=== PATIENT | male | born 1945 | race Caucasian/White ===

== ENCOUNTER 2020-03-27 09:46 | Emergency (ER) | payer OTHER, SELFPAY ==
--- NOTE | ~2020-03-27 | XR_ITS ---
EXAMINATION: XR chest 1V portable INDICATION: Fever TECHNIQUE: Portable AP chest at 1110 hours COMPARISON: 09/08/2009 FINDINGS: The lungs are free of acute opacities. There is no pleural effusion or pneumothorax. The he art size is normal. Calcified atherosclerosis is noted. There is moderate thoracic spondylosis. IMPRESSION: 1. No acute cardiopulmonary abnormality. Reviewed, dictated and finalized at location A. ER TANK OPERATOR
[2020-03-27 09:47] VITALS: BP 131/105; PULSE 82; RESP 28; TEMP 37.6; O2SAT 98
--- NOTE | 2020-03-27 10:30 | ED.GENADULT ---
HPI - General Adult General Chief complaint: Fever Stated complaint: DIZZY,FEVER,BODY ACHES Time Seen by Provider: 03/27/20 09:54 Source: patient History of Present Illness HPI narrative: Patient is a 74 y/o male complaining of subjective fever for 1 week. There is no alleviating or exacerbating factor. He did not check his temperature. He also has generalized bodyache and joint pain. He also feels dizzy and light-headed. He did not pass out or have any room spinning sensation. Related Data Allergies Allergy/AdvReac Type Severity Reaction Status Date / Time No Known Allergies Allergy Unknown Verified 03/27/20 09:52 Review of Systems Constitutional: Constitutional: Denies chills, Reports fever(s), Denies headache(s) and Reports weakness Eyes: Eyes: Denies blurry vision ENT: Denies headache(s) and Denies neck pain Cardiovascular: Cardiovascular: Denies chest pain and Denies dyspnea Respiratory: Respiratory: Denies cough and Denies dyspnea Gastrointestinal: Gastrointestinal: Denies abdominal pain, Denies diarrhea, Denies nausea and Denies vomiting Genitourinary: Genitourinary: Denies hematuria and Denies dysuria Musculoskeletal: Musculoskeletal: Reports as per HPI, Denies back pain, Reports myalgias, Reports arthralgias and Denies neck pain Neurologic: Denies headache(s) and Reports weakness PMFSH Family History Family History Mother Carcinoma of colon Family history of congestive heart failure Social History Social History Smoking status: Never smoker Alcohol intake: current Exam Const: General: no acute distress and well developed Orientation/consciousness: oriented to person, oriented to place, oriented to time and patient oriented x3 HENMT: Head: normocephalic Ears: external ears normal General nose exam: Normal external nose present Eyes: General: appearance normal, both eyes and all related structures Conjunctivae: conjunctivae normal Neck: Neck: normal visual inspection and full ROM Chest: Chest palpation & inspection: normal inspection of the chest and no tenderness Resp: Effort & Inspection: normal respiratory effort Auscultation: clear to auscultation bilaterally Cardio: Rate: regular rate Rhythm: regular rhythm GI: Inspection: other (colostomy present) GI Palp: No abdominal tenderness and Yes Soft to palpation Skin: General skin exam: normal color and turgor normal Neuro: General: oriented to person, oriented to place, oriented to time and patient oriented x3 Cognition (Neuro): normal cognition Extrem: General: normal to inspection, full ROM and no pedal edema Psych: Appearance: grossly normal Mental Status: mental status grossly normal Affect: normal affect Course Vital Signs Vital signs: Vital Signs Temperature 37.6 C H 03/27/20 09:47 Pulse Rate 82 03/27/20 09:47 Respiratory Rate 28 H 03/27/20 09:47 Blood Pressure 131/105 H 03/27/20 09:47 Pulse Oximetry 98 03/27/20 09:47 Temperature 37.6 C H 03/27/20 09:47 Pulse Rate 88 03/27/20 12:56 Respiratory Rate 18 03/27/20 12:56 Blood Pressure 123/94 H 03/27/20 12:56 Pulse Oximetry 100 03/27/20 12:56 Medical Decision Making Vital Signs Vital Signs: Vital Signs Temperature 37.6 C H 03/27/20 09:47 Pulse Rate 82 03/27/20 09:47 Respiratory Rate 28 H 03/27/20 09:47 Blood Pressure 131/105 H 03/27/20 09:47 Pulse Oximetry 98 03/27/20 09:47 Temperature 37.6 C H 03/27/20 09:47 Pulse Rate 88 03/27/20 12:56 Respiratory Rate 18 03/27/20 12:56 Blood Pressure 123/94 H 03/27/20 12:56 Pulse Oximetry 100 03/27/20 12:56 Lab Data Result diagrams: 03/27/20 10:52 03/27/20 10:52 Labs: Lab Results 03/27/20 03/27/20 03/27/20 Range/Units 10:35 10:52 10:52 WBC 6.2 (4.5-10.0) K/mm3 RBC 4.97 (4.6-6.20) M/mm3 Hgb 15.6 (14.0-
[2020-03-27 11:02] LABS: Basophils Percent Auto 0.2 % (0.2-1.2); Hematocrit 44.6 % (42.0-52.0); Hemoglobin 15.6 g/dL (14.0-18.0); Immature Granulocyte Absolute 0.03 K/mm3 (0.00-0.031); Immature Granulocyte Percent A 0.5 % (0-0.5); Lymphocytes Absolute Auto 1.01 K/mm3 (0.9-3.2); Lymphocytes Percent Auto 16.2 % (18.3-44.2); Mean Corpuscular Hemoglobin 31.4 pg (26-34); Mean Corpuscular Volume 89.7 fl (80-100); Mean Platelet Volume 9.9 fl (7.4-10.4); Monocytes Absolute Auto 0.8 K/mm3 (0.1-0.6); Monocytes Percent Auto 12.9 % (2.6-8.5); Neutrophils Absolute Auto 4.4 K/mm3 (1.3-6.7); Neutrophils Percent Auto 70.2 % (45.5-73.1); Platelet Count Result 231 k/mm3 (150-375); Red Blood Count 4.97 M/mm3 (4.6-6.20); Red Cell Distribution Width 13.1 % (11.5-14.5); White Blood Count 6.2 K/mm3 (4.5-10.0)
[2020-03-27 11:08] LABS: Add Urine Microscopic? YES; Appearance Urine Clear (Clear); Bacteria Urine Trace /hpf; Bilirubin Urine Negative (Negative); Blood Urine Negative (Negative); Color Urine Yellow (Yellow); Glucose Urine UA Negative (Negative); Ketones Urine Negative (Negative); Leukocyte Esterase Ur Negative LEU/UL (Negative); Mucus Urine Rare /lpf; Nitrate Urine Negative (Negative); Protein Urine 2+ mg/dL (Negative); Specific Grav Ur 1.026 (1.001-1.035); Squamous Epithelial Cell Urine Occasional /hpf (Few); WBC Urine 0-3 /hpf
[2020-03-27 11:12] VITALS: BP 107/97; PULSE 99; RESP 20; O2SAT 97
[2020-03-27 11:18] LABS: Albumin Level 4.3 g/dL (3.5-5.1)
[2020-03-27 11:29] LABS: Alanine Aminotransferase 20 U/L (4-50); Alkaline Phosphatase 45 U/L (38-126); Anion Gap 11 mmol/L (8-16); Aspartate Amino Transferase 38 U/L (17-59); Bilirubin,Total 0.9 mg/dL (0.2-1.3); Blood Urea Nitrogen 30 mg/dL (9-20); Calcium 9.7 mg/dL (8.4-10.2); Carbon Dioxide 22 mmol/L (22-30); Chloride 101 mmol/L (98-107); Estimated CRCL calculation 45 ml/min; Estimated Glomerular Filt Rate 46; Glucose 118 mg/dL (75-110); Potassium 4.6 mmol/L (3.4-5.0); Sodium 134 mmol/L (137-145)
[2020-03-27] MEDS: SODIUM CHLORIDE 0.9% IV 1,000 ML 999 ML IV CONT (12:52)
[2020-03-27 12:56] VITALS: BP 123/94; PULSE 88; RESP 18; O2SAT 100
[2020-03-27 19:06] LABS: SARS-CoV-2 RNA PCR Positive
== END 2020-03-27 13:52 | disposition home or self-care (01) ==
PROVIDERS: Emergency Provider Emergency Medicine; PCP Family Medicine Adolescent Medicine
DX: U07.1 COVID-19 (principal); R50.9 Fever, unspecified; E86.0 Dehydration
CPT/HCPCS: 36415; 71045; 80053; 81001; 85025; 96360; 99283; C9803; J7030; U0003

== ENCOUNTER 2020-04-01 10:02 | Inpatient (IN) | payer OTHER, SELFPAY ==
[2020-04-01] VITALS (17 sets, daily range): BP systolic 100–133; BP diastolic 61–105; PULSE 56–114; RESP 17–34; TEMP 36.1–37.5; O2SAT 82–100; BMI 31.2
--- NOTE | ~2020-04-01 | XR_ITS ---
EXAMINATION: XR chest 1V portable DATE: 04/05/2020 15:01 INDICATION: COVID-19 pneumonia. TECHNIQUE: A single frontal view of the chest was obtained. COMPARISON: Chest single view 04/01/2020, chest CT 04/01/2020 FINDINGS: There are airspace opacities in all lung zones with a peripheral predominance with relative sparing of the lung apices. No pleural effusion or pneumothorax. The heart size is normal. IMPRESSION: 1. Diffuse lung disease with worsening at the lung bases, consistent with COVID-19 pneumonia. Reviewed, dictated and finalized at location B. EL MECHANIC CONSTRUCTION IMPRESSION: 1. Diffuse lung disease with worsening at the lung bases, consistent with COVID -19 pneumonia.
--- NOTE | ~2020-04-01 | CT_ITS ---
EXAMINATION: CTA chest PE protocol DATE: 04/01/2020 12:04 LENDING CONSULTANT INDICATION: Shortness of breath. Covid Positive. TECHNIQUE: Computed tomographic angiography (CTA) of the chest was performed with 100 mL Omnipaque-35 0 intravenous contrast. The dose-length product was 719.86 mGy-cm. Maximum intensity projection 3D-re constructions of the aorta and other arteries were constructed by the technologist on a separate work station. Automated exposure control and iterative reconstruction technique were employed. COMPARISON: CT dated 03/26/2012 and chest x-ray dated 04/01/2020. FINDINGS: The study is technically adequate without evidence for pulmonary embolism. Heart size upper normal. No significant pleural or pericardial effusion. There are extensive groundglass opacities th roughout all lobes of the lung. There is mild mediastinal lymphadenopathy number for example precarin al lymph node, image 106, measures 1.8 cm. These are likely reactive. There is atherosclerosis and mi ld ectasia of the aorta. There are calcified granulomas of the spleen. Gallbladder is present. IMPRESSION: 1. Extensive patchy bilateral groundglass opacification which may represent edema or pneumonia. 2: Mild mediastinal lymphadenopathy, likely reactive. 3: No evidence for pulmonary embolism. Reviewed, dictated and finalized at location A. ING CONSULTANT IMPRESSION: 1. Extensive patchy bilateral groundglass opacification which may represent maribel ma or pneumonia. 2: Mild mediastinal lymphadenopathy, likely reactive. 3: No evidence for pulmonary embolism.
--- NOTE | ~2020-04-01 | XR_ITS ---
EXAMINATION: XR chest 1V portable INDICATION: Shortness of breath TECHNIQUE: Portable AP chest at 0540 hours COMPARISON: 04/05/2020 FINDINGS: Airspace opacities persist in all lung zones with slight improvement. There is no pleural e ffusion or pneumothorax. The cardiomediastinal silhouette is normal. IMPRESSION: 1. Diffuse lung disease with slight interval improvement, consistent with pneumonia and/or pulmonary edema and/or acute respiratory distress syndrome (ARDS). Reviewed, dictated and finalized at location A. AIN/AIRLINE PILOT IMPRESSION: 1. Diffuse lung disease with slight interval improvement, consistent with pneum onia and/or pulmonary edema and/or acute respiratory distress syndrome (ARDS).
--- NOTE | ~2020-04-01 | XR_ITS ---
XR chest 1V portable 04/01/2020 10:41 Indication: Covid. Shortness of breath. Procedure: AP portable chest Comparison: Comparison to multiple prior studies sequentially, with oldest reviewed study dated 05/08. Findings: Heart size upper normal. There is extensive bilateral airspace disease of the mid and lower lung zones. No pleural effusion or pneumothorax. Impression: 1: Extensive bilateral airspace disease which may represent edema or pneumonia. Reviewed, dictated and finalized at location A. ITION DIRECTOR Impression: 1: Extensive bilateral airspace disease which may represent edema or pneumonia.
--- NOTE | 2020-04-01 10:04 | ED.GENADULT ---
HPI - General Adult General Chief complaint: Upper Respiratory Infection Stated complaint: WEAKNESS,COVID + Time Seen by Provider: 04/01/20 10:04 Source: patient, EMS, RN notes reviewed and old records reviewed History of Present Illness HPI narrative: 74-year-old male presents to emergency department for multiple complaints. Patient states he was diagnosed with COVID-19 on Friday. He has been feeling weak, which has progressively worsened recently. He also reports feeling short of breath. No fever or chills. No chest pain. No abdominal pain. No nausea or vomiting. Per EMS, patient was satting in the 80s, started on nasal cannula. He was also tachycardic. Related Data Home Medications Medication Instructions Recorded Confirmed benzonatate 200 mg PO TID PRN 04/01/20 04/01/20 fenofibrate 160 mg PO DAILY 04/01/20 04/01/20 propranolol 60 mg PO DAILY 04/01/20 04/01/20 simvastatin 40 mg PO HS 04/01/20 04/01/20 Allergies Allergy/AdvReac Type Severity Reaction Status Date / Time No Known Allergies Allergy Unknown Verified 04/01/20 11:00 Review of Systems Review of Systems: Narrative: CONSTITUTIONAL: Denies fever, chills, or sweats. EYES: Denies visual changes, redness, or discharge. ENT: Denies rhinorrhea, congestion, sore throat, or otalgia. CARDIOVASCULAR: Denies chest pain, palpitations, or edema. RESPIRATORY: Denies cough. Reports shortness of breath GASTROINTESTINAL: Denies abdominal pain, nausea, vomiting, or diarrhea. GENITOURINARY: Denies dysuria or hematuria. SKIN: Denies rash or itching. MUSCULOSKELETAL: Denies back pain, joint pain, or myalgia. NEUROLOGIC: Denies headache, numbness, dizziness. Positive for weakness PSYCHIATRIC: Denies anxiety or depression. All systems reviewed & are unremarkable except as noted in HPI and below (ROS) [facility] Past Medical History Medical History (Updated 04/01/20 @ 15:18 by Caitlin Jeter NP) BPH (benign prostatic hyperplasia) HTN (hypertension) with goal to be determined Hyperlipidemia Rectal cancer approximately 10 years ago with a colostomy and radiation and chemotherapy. Surgical History Surgical History (Updated 04/01/20 @ 15:19 by Caitlin Jeter NP) H/O hernia repair colostomy prolapse History of colon surgery colostomy History of removal of Port-a-Cath S/P TURP Family History Family History Mother Carcinoma of colon Family history of congestive heart failure Father Lung cancer Social History Social History (Updated 04/01/20 @ 15:21 by Caitlin Jeter NP) Social History: the patient has never he is single and he does not have any children. He is retired from a [employer]. Lifelong nonsmoker. Does not use any alcohol or illicit drugs. His brother is a durable power laboratory engineer for healthcare. He has with his brother. Patient desires to be a full code. Smoking status: Never smoker Alcohol intake: never Substance use: never Gender identity (if verbalized by the patient): Male Spiritual care concerns: No Exam Narrative: Exam Narrative: GENERAL: Well-appearing, well-nourished, and in no acute distress. HEAD: Normocephalic, atraumatic. EYES: PERRLA and EOMI. ENT: Nares clear, no rhinorrhea or epistaxis. Mucous membranes moist. NECK: Supple. CHEST: Clear to auscultation. Tachypnea, decreased breath sounds bilaterally. HEART: Tachycardia no murmur heard. Normal peripheral pulses. ABDOMEN: Soft, nontender, nondistended, normal active bowel sounds. EXTREMITIES: Normal range of motion. No edema. SKIN: Warm, dry, no rash. NEURO: No focal deficits. Alert and oriented x3. PSYCH: Normal mood and affect. Course Reevaluation(s) Reevaluation #1: 12:05PM - pt has low oxygen sat on 6L, satting in the 80s, will start CPAP 1310 -with Caitlin, accepts patient for Dr. Rosen. 1320 -reevaluated patient, tolerating CPAP Vital Signs Vital signs: Vital Signs Temp
--- NOTE | 2020-04-01 10:07 | ECG_ITS ---
Measurements Intervals Cross Rate: 110 P: 18 DE: 171 QRS: 260 QRSD: 154 T: 30 QT: 365 QTc: 494 Interpretive Statements SINUS TACHYCARDI ATRIAL PREMATURE COMPLEX RIGHT AXIS DEVIATION RIGHT BUNDLE BRANCH BLOCK BASELINE ARTIFACT- I, III, AVL, AVF, V3 ABNORMAL ECG Electronically Signed On 04-01-2020 15:11:02 FURNACE OPERATOR by Clint Rodriguez D.O.
[2020-04-01] MEDS: KETOROLAC 15 MG/ML VIAL (*BKC) IV PUSH (10:14)
[2020-04-01] MEDS: DEXAMETHASONE SOD PHOS INJ 4 MG/ML VIAL 6 MG IV PUSH (10:14)
[2020-04-01 10:24] LABS: Basophils Percent Auto 0.2 % (0.2-1.2); Hematocrit 45.1 % (42.0-52.0); Hemoglobin 15.9 g/dL (14.0-18.0); Immature Granulocyte Absolute 0.03 K/mm3 (0.00-0.031); Immature Granulocyte Percent A 0.3 % (0-0.5); Lymphocytes Percent Auto 12.8 % (18.3-44.2); Mean Corpuscular HGB Conc 35.3 g/dl (32-36); Mean Corpuscular Hemoglobin 31.5 pg (26-34); Mean Corpuscular Volume 89.3 fl (80-100); Mean Platelet Volume 10.2 fl (7.4-10.4); Monocytes Absolute Auto 0.4 K/mm3 (0.1-0.6); Neutrophils Absolute Auto 7.8 K/mm3 (1.3-6.7); Neutrophils Percent Auto 82.7 % (45.5-73.1); Platelet Count Result 386 k/mm3 (150-375); Red Blood Count 5.05 M/mm3 (4.6-6.20); Red Cell Distribution Width 13.1 % (11.5-14.5); White Blood Count 9.4 K/mm3 (4.5-10.0)
[2020-04-01 10:38] LABS: Albumin Level 4.2 g/dL (3.5-5.1); Alkaline Phosphatase 62 U/L (38-126); Anion Gap 14 mmol/L (8-16); Aspartate Amino Transferase 80 U/L (17-59); Bilirubin,Total 1.1 mg/dL (0.2-1.3); Blood Urea Nitrogen 21 mg/dL (9-20); Calcium 9.3 mg/dL (8.4-10.2); Carbon Dioxide 21 mmol/L (22-30); Chloride 94 mmol/L (98-107); Estimated CRCL calculation 56 ml/min; Estimated Glomerular Filt Rate 59; Glucose 139 mg/dL (75-110); Potassium 4.5 mmol/L (3.4-5.0); Sodium 129 mmol/L (137-145)
[2020-04-01 10:48] LABS: NT Pro B Type Natriuretic Pept 1780 PG/ML (5-100); Troponin I 0.012 ng/mL (0.000-0.034)
[2020-04-01 10:50] LABS: Alanine Aminotransferase 28 U/L (4-50)
[2020-04-01 11:16] LABS: D Dimer 0.96 ug/mL (<0.48)
--- NOTE | 2020-04-01 14:05 | PC.NURSE ---
CALLED FLOOR TO GIVE REPORT. STATES RN IS UNAVAILABLE AT THIS TIME AND WILL CALL BACK FOR REPORT.
--- NOTE | 2020-04-01 15:07 | PM.IMHP ---
H&P: HPI History of Present Illness Date/Time: 04/01/20 15:07 Chief Complaint: Shortness of breath Narrative: Shai Montoya is a 74 year old maleWho was having symptoms approximately week and half ago. The patient does primary care doctor's office and was given COVID test and tested positive for Friday. He lives with his brother and states his brother does not have COVID . He has been getting weak and progressively worse lately. He has been feeling short of breath. No fever chills he the patient was having oxygen saturations in the 80s when EMS edema. He is also tachycardic. Patient was placed on a CPAP machine per ED provider. Has a history of having colon cancer about 10 years ago and was on chemo and radiation then but is not on any chemo radiation since then. Patient's sodium is 129 and had been 134 few days ago. He is not eating or drinking very well. His creatinine is normal today though. BNP is 1780. His patient's COVID test was positive in the chart on 03/27/2020. CTA was read as extreme patchy bilateral ground-glass opacities which may represent edema or pneumonia. Mild mediastinal lymphadenopathy likely reactive. No evidence of pulmonary embolism. The patient was given Decadron and Toradol. Patient has no complaints of chest pain at this time he was initially started on nasal cannula when he was in the ambulance but is now on a CPAP machine. He is tolerating it well. The patient is being admitted to inpatient services on the date of service 06/15 6021. Review of Systems Review of Systems: All systems reviewed & are unremarkable except as noted in HPI and below Constitutional: Constitutional: Reports as per HPI and Reports no additional constitutional complaints Eyes: Eyes: Reports as per HPI and Reports no additional eye complaints ENT: Reports system reviewed and no additional complaints, except as documented and Reports Normal hearing present Cardiovascular: Cardiovascular: Reports no additional cardiovascular complaints Respiratory: Respiratory: Reports no additional respiratory complaints and Reports no additional respiratory complaints Gastrointestinal: Gastrointestinal: Reports as per HPI and Reports no additional gastrointestinal complaints Musculoskeletal: Musculoskeletal: Reports no additional musculoskeletal complaints Integumentary/Breasts: Skin/Breast: Reports system reviewed and no additional complaints, except as docu and Reports as per HPI Neurologic: Reports system reviewed and no additional complaints, except as documented, Reports as per HPI and Reports Normal hearing present Psychiatric: Psychiatric: Reports no additional psychiatric complaints and Reports as per HPI Endocrine: Endocrine: Reports no additional endocrine complaints Hematologic/Lymphatic: Hematologic/Lymphatic: Reports no additional hematologic/lymphatic complaints Allergic/Immunologic: Allergic/Immunologic: Reports no additional allergic/immunologic complaints [facility] Past Medical History Medical History (Updated 04/01/20 @ 15:18 by Caitlin Jeter NP) BPH (benign prostatic hyperplasia) HTN (hypertension) with goal to be determined Hyperlipidemia Rectal cancer approximately 10 years ago with a colostomy and radiation and chemotherapy. Surgical History Surgical History (Updated 04/01/20 @ 15:19 by Caitlin Jeter NP) H/O hernia repair colostomy prolapse History of colon surgery colostomy History of removal of Port-a-Cath S/P TURP Family History Family History (Updated 04/01/20 @ 15:20 by Caitlin Jeter NP) Mother Carcinoma of colon Family history of congestive heart failure Father Lung cancer Social History Social History (Updated 04/01/20 @ 15:21 by Caitlin Jeter NP) Social History: the patient has never he is single and he does not have any children. 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 Lifelong nonsmoker. Does not use any alcohol or illicit drugs. His brother is a durab
--- NOTE | 2020-04-01 15:24 | ADMGEN ---
This patient, Shai Montoya, was admitted to IMU Room 211-01. Patient/family oriented to hospital policies and general routines including ID bracelet, bed and alarms, visiting hours, pain management, procedures, bathroom and other care routines, personal items, smoking policy, room service/diet, and visiting hours. Information on how to activate the Rapid Response Team has been discussed. Patient/Family are encouraged to report perceived risks to care and to ask questions if they do not understand what they are told or what they should do.
--- NOTE | 2020-04-01 15:25 | ADMGEN ---
This patient, hSai Montoya, was admitted to IMU Room 211-01 at 1450 on 03/31/20. Patient/family oriented to hospital policies and general routines including ID bracelet, bed and alarms, visiting hours, pain management, procedures, bathroom and other care routines, personal items, smoking policy, room service/diet, and visiting hours. Information on how to activate the Rapid Response Team has been discussed. Patient/Family are encouraged to report perceived risks to care and to ask questions if they do not understand what they are told or what they should do.
[2020-04-01 16:26] LABS: Sodium 128 mmol/L (137-145)
[2020-04-01 16:31] LABS: Anion Gap 5 mmol/L (8-16); Blood Urea Nitrogen 27 mg/dL (9-20); Calcium 9.3 mg/dL (8.4-10.2); Carbon Dioxide 25 mmol/L (22-30); Chloride 98 mmol/L (98-107); Estimated CRCL calculation 51 ml/min; Estimated Glomerular Filt Rate 54; Glucose 134 mg/dL (75-110); Potassium 5.2 mmol/L (3.4-5.0)
[2020-04-01] MEDS: TOLNAFTATE 1% POWDER 45 GM BTL 1 APPLIC TOPICAL (21:05)
[2020-04-02] VITALS (17 sets, daily range): BP systolic 93–125; BP diastolic 56–85; PULSE 55–93; RESP 16–30; TEMP 36.3–36.6; O2SAT 86–100
[2020-04-02] MEDS: SIMVASTATIN 20 MG TABLET 40 MG PO ×2 (00:31→20:10)
[2020-04-02 05:53] LABS: Basophils Percent Auto 0.2 % (0.2-1.2); Hematocrit 45.2 % (42.0-52.0); Hemoglobin 15.6 g/dL (14.0-18.0); Immature Granulocyte Absolute 0.05 K/mm3 (0.00-0.031); Immature Granulocyte Percent A 0.5 % (0-0.5); Lymphocytes Absolute Auto 0.76 K/mm3 (0.9-3.2); Lymphocytes Percent Auto 7.9 % (18.3-44.2); Mean Corpuscular HGB Conc 34.5 g/dl (32-36); Mean Corpuscular Hemoglobin 30.5 pg (26-34); Mean Corpuscular Volume 88.3 fl (80-100); Mean Platelet Volume 10.2 fl (7.4-10.4); Monocytes Absolute Auto 0.6 K/mm3 (0.1-0.6); Monocytes Percent Auto 6.7 % (2.6-8.5); Neutrophils Absolute Auto 8.1 K/mm3 (1.3-6.7); Neutrophils Percent Auto 84.7 % (45.5-73.1); Platelet Count Result 383 k/mm3 (150-375); Red Blood Count 5.12 M/mm3 (4.6-6.20); White Blood Count 9.6 K/mm3 (4.5-10.0)
[2020-04-02 06:08] LABS: Alanine Aminotransferase 27 U/L (4-50); Alkaline Phosphatase 58 U/L (38-126); Anion Gap 7 mmol/L (8-16); Aspartate Amino Transferase 60 U/L (17-59); Bilirubin,Total 0.9 mg/dL (0.2-1.3); Blood Urea Nitrogen 32 mg/dL (9-20); Calcium 9.6 mg/dL (8.4-10.2); Carbon Dioxide 27 mmol/L (22-30); Chloride 97 mmol/L (98-107); Estimated CRCL calculation 49 ml/min; Estimated Glomerular Filt Rate 59; Glucose 127 mg/dL (75-110); Lactate Dehydrogenase 1334 U/L (313-618); Magnesium 2.4 mg/dL (1.6-2.3); Sodium 131 mmol/L (137-145)
[2020-04-02] MEDS: TOLNAFTATE 1% POWDER 45 GM BTL 1 APPLIC TOPICAL ×2 (10:20→20:10)
[2020-04-02] MEDS: PROPRANOLOL HCL 60 MG CAPSULE CR PO (10:21)
[2020-04-02] MEDS: FENOFIBRATE 160 MG TABLET PO (10:21)
[2020-04-02] MEDS: DEXAMETHASONE SOD PHOS INJ 4 MG/ML VIAL 6 MG IV PUSH (10:22)
--- NOTE | 2020-04-02 13:04 | PM.IMPN ---
Progress Note: A&P Assessment and Plan (1) Hypoxia: Code(s): R09.02 - Hypoxemia Status: Acute Assessment and Plan: 04/02 Tolerating oxygen at 15 L with sats upper 90s. To med floor 04/02 No remdesivir due to past 10 day window. Dexamethasone initiated on 04/01. (2) Pneumonia due to 2019-nCoV: Code(s): U07.1 - COVID-19; J12.82 - Pneumonia due to coronavirus disease 2019 Status: Acute Assessment and Plan: Tested positive 03/27 but had been having symptoms for a week and half [address] [employer] (3) HTN (hypertension) with goal to be determined: Code(s): I10 - Essential (primary) hypertension Status: Chronic Assessment and Plan: Continue with home medications Monitor (4) BPH (benign prostatic hyperplasia): Code(s): N40.0 - Benign prostatic hyperplasia without lower urinary tract symptoms Status: Chronic Assessment and Plan: prior TURP continue with home medications. Subjective Date/time seen: 04/02/20 13:04 Interval history: Admitted 04/01 after about 10 days of symptoms, SOB, cough, chest tightness, fatigue. 04/02: Very tired. Tolerating diet. SOB with any exertion. Denied n/v/d. Review of Systems Review of Systems: All systems reviewed & are unremarkable except as noted in HPI and below Exam Narrative: Exam Narrative: HEENT: EOMI, PERRL, sclerae nonicteric, pharyngeal mucosa pink and intact NECK: No JVD, adenopathy, or thyromegaly CHEST: Bilateral LL fine crackles. Mild tachypnea HEART: NL S1/S2, regular, no murmur ABDOMEN: BS+, soft, nontender, no mass, no bruits EXTREMITIES: No cyanosis, edema, or clubbing NEUROLOGIC: CN intact and symmetric to inspection. MUSCULOSKELETAL: Tone and strength symmetric. PSYCH: Alert. Oriented to person, place, and time. Objective Data Vital Signs Vital Signs: Vital Signs - 24 hr 04/01/20 13:20 04/01/20 14:21 04/01/20 14:41 Temperature Pulse Rate 73 72 75 Respiratory Rate 20 20 20 Blood Pressure 100/71 111/70 111/70 Pulse Oximetry 97 96 97 04/01/20 15:15 04/01/20 15:23 04/01/20 15:30 Temperature 97.7 F Pulse Rate 70 70 Respiratory Rate 20 34 H Blood Pressure 108/61 Pulse Oximetry 87 L 88 L 95 04/01/20 15:52 04/01/20 16:00 04/01/20 18:00 Temperature 97.7 F Pulse Rate 70 60 83 Respiratory Rate 20 Blood Pressure 108/61 Pulse Oximetry 87 L 04/01/20 20:00 04/01/20 21:30 04/01/20 22:00 Temperature 97 F L Pulse Rate 56 L 61 62 Respiratory Rate 24 H 32 H Blood Pressure 133/84 Pulse Oximetry 100 96 04/02/20 00:00 04/02/20 02:00 04/02/20 03:51 Temperature 97.4 F L Pulse Rate 56 L 58 L Respiratory Rate 27 H Blood Pressure 93/57 L Pulse Oximetry 96 97 04/02/20 04:00 04/02/20 06:00 04/02/20 06:32 Temperature 97.6 F Pulse Rate 58 L 71 Respiratory Rate 22 H Blood Pressure 103/68 Pulse Oximetry 97 90 04/02/20 08:00 04/02/20 08:01 04/02/20 10:00 Temperature 97.8 F Pulse Rate 74 81 88 Respiratory Rate 20 Blood Pressure 94/56 L Pulse Oximetry 95 90 04/02/20 10:21 04/02/20 12:00 Temperature 97.6 F Pulse Rate 93 85 Respiratory Rate 22 H Blood Pressure 124/66 Pulse Oximetry 96 Intake/Output Intake/Output: Intake & Output 03/30/20 03/31/20 04/01/20 04/02/20 23:59 23:59 23:59 23:59 Intake Total 125 480 Output Total 325 600 Balance -200 -120 Meds/Results Medications: Active Medications Generic Name Dose Route Start Last Admin Trade Name Freq PRN Reason Stop Dose Admin Acetaminophen 650 mg 04/01/20 13:14 Acetaminophen 325 Mg Tablet PO Q4H PRN Mild Pain (1-3) or Fever Benzonatate 200 mg 04/01/20 22:49 Benzonatate 100 Mg Capsule PO TID PRN Cough Dexamethasone Sodium Phosphate 6 mg 04/02/20 09:00 04/02/20 10:22 Dexamethasone Sod Phos Inj 4 Mg/Ml Vial IV PUSH 04/11/20 09:01 6 mg DAILY OCTAVIO Administration Fenofibrate 160 mg 04/02/20 09:00 04/02/20 10:21 Fe
[2020-04-03] VITALS (8 sets, daily range): BP systolic 103–152; BP diastolic 54–96; PULSE 53–74; RESP 18–24; TEMP 36.1–36.6; O2SAT 87–100
[2020-04-03 05:25] LABS: Hematocrit 45.1 % (42.0-52.0); Hemoglobin 15.7 g/dL (14.0-18.0); Mean Corpuscular HGB Conc 34.8 g/dl (32-36); Mean Corpuscular Hemoglobin 30.7 pg (26-34); Mean Corpuscular Volume 88.3 fl (80-100); Mean Platelet Volume 10.4 fl (7.4-10.4); Platelet Count Result 419 k/mm3 (150-375); Red Blood Count 5.11 M/mm3 (4.6-6.20); Red Cell Distribution Width 12.9 % (11.5-14.5); White Blood Count 11.4 K/mm3 (4.5-10.0)
[2020-04-03 05:38] LABS: D Dimer 1.14 ug/mL (<0.48)
[2020-04-03 05:42] LABS: Alanine Aminotransferase 34 U/L (4-50); Albumin Level 3.8 g/dL (3.5-5.1); Alkaline Phosphatase 59 U/L (38-126); Anion Gap 7 mmol/L (8-16); Aspartate Amino Transferase 55 U/L (17-59); Bilirubin,Total 0.9 mg/dL (0.2-1.3); Blood Urea Nitrogen 37 mg/dL (9-20); Calcium 9.5 mg/dL (8.4-10.2); Carbon Dioxide 28 mmol/L (22-30); Chloride 99 mmol/L (98-107); Estimated CRCL calculation 53 ml/min; Estimated Glomerular Filt Rate > 60; Glucose 138 mg/dL (75-110); Lactate Dehydrogenase 1164 U/L (313-618); Sodium 134 mmol/L (137-145)
[2020-04-03] MEDS: DEXAMETHASONE SOD PHOS INJ 4 MG/ML VIAL 6 MG IV PUSH (09:37)
[2020-04-03] MEDS: FENOFIBRATE 160 MG TABLET PO (09:37)
[2020-04-03] MEDS: PROPRANOLOL HCL 60 MG CAPSULE CR PO (09:37)
[2020-04-03] MEDS: TOLNAFTATE 1% POWDER 45 GM BTL 1 APPLIC TOPICAL ×2 (09:39→20:42)
--- NOTE | 2020-04-03 11:19 | PM.IMPN ---
Progress Note: A&P Assessment and Plan (1) Acute respiratory failure with hypoxemia: Code(s): J96.01 - Acute respiratory failure with hypoxia Status: Acute Assessment and Plan: Tolerating oxygen at 15 L with sats upper 90s. Wean O2 as tolerated. Add Albuterol. Add incentive spirometry. Increase activity. 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 CXR clear on 03/27 but showing extensive bilateral airspace disease by CXR on admission. CTA chest negative for PE. No remdesivir due to past 10 day window. Dexamethasone initiated on 04/01. Inflammatory markers better today. Continue Dexamethasone. Wean O2 as toelrated. (3) HTN (hypertension) with goal to be determined: Code(s): I10 - Essential (primary) hypertension Status: Chronic Assessment and Plan: Patient's blood pressure was reviewed on 04/03 Blood pressure remains well controlled. Will continue current medications with home propranolol. (4) BPH (benign prostatic hyperplasia): Code(s): N40.0 - Benign prostatic hyperplasia without lower urinary tract symptoms Status: Chronic Assessment and Plan: Patient has had TURP. Not currently on medications for BPH. (5) DVT prophylaxis: Code(s): Z29.9 - Encounter for prophylactic measures, unspecified Status: Acute Assessment and Plan: Lovenox Subjective Date/time seen: 04/03/20 11:19 Interval history: Date of service 04/03 74yo male admitted 04/01 after about 10 days of symptoms of SOB, cough, chest tightness and fatigue. He tested positive for COVID-19 on 03/27/20. Assuming care. Chart reviewed. Eating okay. No n/v. No issues overnight. Tolerating BiPAP. No CP or abd pain. Denies feeling SOB. Minimal cough Exam Narrative: Exam Narrative: AF 97.4 142/92 65 24 93% 15L HFNC Gen - NARD HEENT - poor dentition. mmm Chest - inspiratory crackles bilaterally, nml RR CV - irregularly irregular Abd - Soft, ND, +BS, colostomy bag with light brown stool in bag Ext - No pedal edema Psych - Nml mood and affect Skin - Warm and dry Objective Data Vital Signs Vital Signs: Vital Signs - 24 hr 04/02/20 12:00 04/02/20 16:00 04/02/20 19:56 Temperature 97.6 F 97.3 F L 97.5 F L Pulse Rate 85 80 77 Respiratory Rate 22 H 22 H 26 H Blood Pressure 124/66 119/81 125/85 Pulse Oximetry 96 96 100 04/02/20 20:00 04/02/20 22:47 04/02/20 23:05 Temperature Pulse Rate 55 L 58 L Respiratory Rate 16 16 Blood Pressure Pulse Oximetry 96 99 86 L 04/02/20 23:20 04/03/20 07:50 04/03/20 08:23 Temperature 97.5 F L 97.6 F Pulse Rate 63 69 Respiratory Rate 24 H 20 Blood Pressure 114/62 152/96 H Pulse Oximetry 94 90 94 04/03/20 09:37 Temperature Pulse Rate 60 Respiratory Rate Blood Pressure Pulse Oximetry Intake/Output Intake/Output: Intake & Output 03/31/20 04/01/20 04/02/20 04/03/20 23:59 23:59 23:59 23:59 Intake Total 125 800 390 Output Total 325 950 775 Balance -200 -150 -385 Meds/Results Medications: Active Medications Generic Name Dose Route Start Last Admin Trade Name Gumaroq PRN Reason Stop Dose Admin Acetaminophen 650 mg 04/01/20 13:14 Acetaminophen 325 Mg Tablet PO Q4H PRN Mild Pain (1-3) or Fever Benzonatate 200 mg 04/01/20 22:49 Benzonatate 100 Mg Capsule PO TID PRN Cough Dexamethasone Sodium Phosphate 6 mg 04/02/20 09:00 04/03/20 09:37 Dexamethasone Sod Phos Inj 4 Mg/Ml Vial IV PUSH 04/11/20 09:01 6 mg DAILY OCTAVIO Administration Fenofibrate 160 mg 04/02/20 09:00 04/03/20 09:37 Fenofibrate 160 Mg Tablet PO 160 mg DAILY OCTAVIO Administration Propranolol HCl 60 mg 04/02/20 09:00 04/03/20 09:37 Propranolol Hcl 60 M
[2020-04-03] MEDS: ALBUTEROL SULFATE (*SP) AEROSOL 1 PUFF 2 PUFF INHALATION (19:50)
[2020-04-03] MEDS: SIMVASTATIN 20 MG TABLET 40 MG PO (20:40)
[2020-04-03] MEDS: ENOXAPARIN 40 MG/0.4 ML SYRINGE SUB-Q (20:41)
[2020-04-03] MEDS: ALBUTEROL SULFATE (*SP) INHALER 1 PUFF (20:41)
[2020-04-04] VITALS (11 sets, daily range): BP systolic 112–120; BP diastolic 63–86; PULSE 63–89; RESP 20–24; TEMP 36.2–36.6; O2SAT 84–100
[2020-04-04] MEDS: ALBUTEROL SULFATE (*SP) AEROSOL 1 PUFF 2 PUFF INHALATION ×4 (01:32→20:07)
[2020-04-04 05:14] LABS: Anion Gap 4 mmol/L (8-16); Blood Urea Nitrogen 37 mg/dL (9-20); Carbon Dioxide 28 mmol/L (22-30); Chloride 100 mmol/L (98-107); Estimated CRCL calculation 49 ml/min; Estimated Glomerular Filt Rate 59; Glucose 131 mg/dL (75-110); Potassium 5.3 mmol/L (3.4-5.0); Sodium 132 mmol/L (137-145)
[2020-04-04] MEDS: FENOFIBRATE 160 MG TABLET PO (08:54)
[2020-04-04] MEDS: PROPRANOLOL HCL 60 MG CAPSULE CR PO (08:54)
[2020-04-04] MEDS: ENOXAPARIN 40 MG/0.4 ML SYRINGE SUB-Q (08:54)
[2020-04-04] MEDS: DEXAMETHASONE SOD PHOS INJ 4 MG/ML VIAL 6 MG IV PUSH (08:54)
[2020-04-04] MEDS: TOLNAFTATE 1% POWDER 45 GM BTL 1 APPLIC TOPICAL ×2 (08:55→20:07)
--- NOTE | 2020-04-04 10:20 | PM.IMPN ---
Progress Note: A&P Assessment and Plan (1) Acute respiratory failure with hypoxemia: Code(s): J96.01 - Acute respiratory failure with hypoxia Status: Acute Assessment and Plan: Tolerating oxygen at 15 L with sats upper 90s. Wean O2 as tolerated. Continue Albuterol. Compliant with incentive spirometry. Increase activity. 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 CXR clear on 03/27 but showing extensive bilateral airspace disease by CXR on admission (04/01). CTA chest negative for PE. No remdesivir due to past 10 day window. Dexamethasone initiated on 04/01. Inflammatory markers better yesterday. Continue Dexamethasone. Wean O2 as tolerated (3) HTN (hypertension) with goal to be determined: Code(s): I10 - Essential (primary) hypertension Status: Chronic Assessment and Plan: Patient's blood pressure was reviewed on 04/04 Blood pressure remains well controlled. Will continue current medications with home propranolol. (4) BPH (benign prostatic hyperplasia): Code(s): N40.0 - Benign prostatic hyperplasia without lower urinary tract symptoms Status: Chronic Assessment and Plan: Patient has had TURP. Not currently on medications for BPH. Dunham secured. Add Flomax. (5) DVT prophylaxis: Code(s): Z29.9 - Encounter for prophylactic measures, unspecified Status: Acute Assessment and Plan: Lovenox (6) Hyperkalemia: Code(s): E87.5 - Hyperkalemia Status: Acute Assessment and Plan: potassium 5.3. Not on medications to cause this; Lovenox? TSH normal. Will repeat level later today. Low potassium diet. Check cortisol Subjective Date/time seen: 04/04/20 10:20 Interval history: Date of service 04/04 74yo male admitted 04/01 after about 10 days of symptoms of SOB, cough, chest tightness and fatigue. He tested positive for COVID-19 on 03/27/20. No CP or abd pain,. Dunham placed since he couldn't epty his bladder completely. Cough persistent but nonproductive. Eating okay. No n/v. No diarrhea. Exam Narrative: Exam Narrative: AF 97.9 112/93 67 20 98% 15L HFNC Gen - NARD lying almost flat in bed HEENT - poor dentition. mmm Chest - inspiratory crackles bilaterally, nml RR CV - RRR S1/S2; Tele showing sinus arrythmia and PVCs Abd - Soft, ND, +BS, colostomy bag with light brown stool in bag - Dunham secured draining clear yellow urine (placed 04/01) Ext - No pedal edema Psych - Nml mood and affect Skin - Warm and dry Objective Data Vital Signs Vital Signs: Vital Signs - 24 hr 04/03/20 16:00 04/03/20 19:52 04/03/20 20:00 Temperature 97.4 F L 97 F L Pulse Rate 65 53 L 74 Respiratory Rate 24 H 18 20 Blood Pressure 142/92 H 116/68 Pulse Oximetry 93 96 100 04/03/20 23:55 04/04/20 08:00 04/04/20 08:54 Temperature 97.8 F 97.9 F Pulse Rate 55 L 67 67 Respiratory Rate 22 H 20 Blood Pressure 103/54 L 112/63 Pulse Oximetry 87 L 98 Intake/Output Intake/Output: Intake & Output 04/01/20 04/02/20 04/03/20 04/04/20 23:59 23:59 23:59 23:59 Intake Total 125 800 930 Output Total 747 184 4523 700 Balance -200 -150 -195 -700 Meds/Results Medications: Active Medications Generic Name Dose Route Start Last Admin Trade Name Freq PRN Reason Stop Dose Admin Acetaminophen 650 mg 04/01/20 13:14 Acetaminophen 325 Mg Tablet PO Q4H PRN Mild Pain (1-3) or Fever Albuterol 2 puff 04/03/20 20:00 04/04/20 09:03 Albuterol Sulfate (*Sp) Aerosol 1 Puff INHALATION 2 puff Q6HRT OCTAVIO Administration Benzonatate 200 mg 04/01/20 22:49 Benzonatate 100 Mg Capsule PO TID PRN Cough Dexamethasone Sodium Phosphate 6 mg 04/02/20 09:00 04/04/20 08:54 D
[2020-04-04 12:10] LABS: Potassium 5.2 mmol/L (3.4-5.0)
[2020-04-04] MEDS: TAMSULOSIN HCL 0.4 MG CAPSULE PO (15:11)
[2020-04-04] MEDS: SIMVASTATIN 20 MG TABLET 40 MG PO (20:06)
[2020-04-05] VITALS (20 sets, daily range): BP systolic 91–125; BP diastolic 60–72; PULSE 51–98; RESP 18–25; TEMP 36.3–36.6; O2SAT 90–100
[2020-04-05 03:02] LABS: Hematocrit 45.6 % (42.0-52.0); Hemoglobin 15.8 g/dL (14.0-18.0); Mean Corpuscular HGB Conc 34.6 g/dl (32-36); Mean Corpuscular Volume 89.6 fl (80-100); Mean Platelet Volume 10.1 fl (7.4-10.4); Platelet Count Result 400 k/mm3 (150-375); Red Blood Count 5.09 M/mm3 (4.6-6.20); Red Cell Distribution Width 12.7 % (11.5-14.5); White Blood Count 12.5 K/mm3 (4.5-10.0)
[2020-04-05 03:20] LABS: Anion Gap 6 mmol/L (8-16); Blood Urea Nitrogen 41 mg/dL (9-20); CRP 3.3 mg/dL (<1.0); Calcium 9.4 mg/dL (8.4-10.2); Carbon Dioxide 30 mmol/L (22-30); Chloride 100 mmol/L (98-107); Estimated CRCL calculation 53 ml/min; Estimated Glomerular Filt Rate > 60; Glucose 132 mg/dL (75-110); Lactate Dehydrogenase 1413 U/L (313-618); Magnesium 2.6 mg/dL (1.6-2.3); Potassium 5.7 mmol/L (3.4-5.0); Sodium 136 mmol/L (137-145)
[2020-04-05 03:55] LABS: Cortisol Random 2.47 ug/dL
--- NOTE | 2020-04-05 07:50 | PCOTNOTE ---
Per RN, no therapy services at this time due to Patients condition. Patient is on a C-HONG on 100% O2. Per RN, check back at a later time.
[2020-04-05] MEDS: TAMSULOSIN HCL 0.4 MG CAPSULE PO (08:18)
[2020-04-05] MEDS: FENOFIBRATE 160 MG TABLET PO (08:18)
[2020-04-05] MEDS: PROPRANOLOL HCL 60 MG CAPSULE CR PO (08:18)
[2020-04-05] MEDS: ENOXAPARIN 40 MG/0.4 ML SYRINGE SUB-Q (08:18)
[2020-04-05] MEDS: DEXAMETHASONE SOD PHOS INJ 4 MG/ML VIAL 6 MG IV PUSH (08:19)
[2020-04-05] MEDS: TOLNAFTATE 1% POWDER 45 GM BTL 1 APPLIC TOPICAL ×2 (08:19→20:56)
[2020-04-05] MEDS: ALBUTEROL SULFATE (*SP) AEROSOL 1 PUFF 2 PUFF INHALATION ×3 (08:20→20:55)
[2020-04-05] MEDS: BENZONATATE 100 MG CAPSULE 200 MG PO (08:20)
--- NOTE | 2020-04-05 09:56 | PCPTNOTE ---
The patient treatment was not able to be completed on 04-05-2020 due to R.N advised not to see patient at this time due to being on continuous CPAP wanting to speak to M.Mc first. Will plan to continue treatment per plan of care.
--- NOTE | 2020-04-05 12:55 | PCOTNOTE ---
Per nursing staff, Patients condition has decreased, O2 sats are to low. No therapy this P.M.
--- NOTE | 2020-04-05 14:32 | PM.IMPN ---
Progress Note: A&P Assessment and Plan (1) Acute respiratory failure with hypoxemia: Code(s): J96.01 - Acute respiratory failure with hypoxia Status: Acute Assessment and Plan: Tolerating oxygen at 15 L with sats upper 90s but still desats requiring CPAP. Wean O2 as tolerated. Continue Albuterol. Check CXR and ABG given that he is worsening. 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 CXR clear on 03/27 but showing extensive bilateral airspace disease by CXR on admission (04/01). CTA chest negative for PE. No remdesivir due to past 10 day window. Dexamethasone initiated on 04/01. CRP better but LDH higher. Continue Dexamethasone. Wean O2 as tolerated (3) HTN (hypertension) with goal to be determined: Code(s): I10 - Essential (primary) hypertension Status: Chronic Assessment and Plan: Patient's blood pressure was reviewed on 04/05 Blood pressure remains well controlled. Will continue current medications with home propranolol. (4) BPH (benign prostatic hyperplasia): Code(s): N40.0 - Benign prostatic hyperplasia without lower urinary tract symptoms Status: Chronic Assessment and Plan: Patient has had TURP. Not currently on medications for BPH. Dunham secured. Continue Flomax. (5) DVT prophylaxis: Code(s): Z29.9 - Encounter for prophylactic measures, unspecified Status: Acute Assessment and Plan: Lovenox (6) Hyperkalemia: Code(s): E87.5 - Hyperkalemia Status: Acute Assessment and Plan: potassium 5.7 today. TSH normal. Cortisol level low but not unexpected given the Dexa (should not effect the mineralocorticoid system unless has adrenal gland insufficiency). Not on medications to cause this; Lovenox? Will repeat level later today. Continue low potassium diet. Subjective Date/time seen: 04/05/20 14:32 Interval history: Date of service 04/05 74yo male admitted 04/01 after about 10 days of symptoms of SOB, cough, chest tightness and fatigue. He tested positive for COVID-19 on 03/27/20. Patient was down to 8L yesterday but later in the day, worsened requiring PAP therapy. He wore PAP overnight and today. Off for a short period with NRB mask and HFNC but condition worsened. He feels his SOB is better. He denies CP. Eating okay. Exam Narrative: Exam Narrative: AF 97.9 125/71 94 20 93% HFNC Gen - NARD lying semirecumbent in bed HEENT - poor dentition. mmm Chest - R>L inspiratory bibasilar crackles inspiratory crackles bilaterally, nml RR CV - irregular S1/S2; Tele showing sinus arrhythmia, PACs and PVCs Abd - Soft, ND, +BS, colostomy bag with light brown stool in bag - Dunham secured draining clear yellow urine (placed 04/01) Ext - No pedal edema Psych - Nml mood and affect Skin - Warm and dry Objective Data Vital Signs Vital Signs: Vital Signs - 24 hr 04/04/20 16:00 04/04/20 20:00 04/04/20 20:40 Temperature 97.1 F L 97.4 F L Pulse Rate 63 89 Respiratory Rate 24 H 20 Blood Pressure 117/86 120/76 Pulse Oximetry 84 L 92 100 04/04/20 22:15 04/05/20 00:00 04/05/20 02:51 Temperature Pulse Rate 98 51 L Respiratory Rate Blood Pressure Pulse Oximetry 85 L 97 04/05/20 03:32 04/05/20 04:00 04/05/20 05:20 Temperature 97.5 F L Pulse Rate 62 53 L Respiratory Rate 25 H Blood Pressure 91/60 L Pulse Oximetry 95 97 04/05/20 06:00 04/05/20 08:00 04/05/20 08:18 Temperature 97.9 F Pulse Rate 53 L 57 L 59 L Respiratory Rate 24 H Blood Pressure 125/71 Pulse Oximetry 93 04/05/20 08:43 04/05/20 10:00 04/05/20 12:00 Temperature Pulse Rate 71 80 83 Respiratory Rate 20 Blood Pressure Pulse Oximetry 93 93 93 Intake/Output
[2020-04-05 14:50] LABS: Alveolar/Arterial O2 Gradient 618.2 mmHg; Base Excess ABG -2.1 mEq/l (+/-2.0); Fractional Inspired Oxygen 100 %; HCO3 ABG 20.3 mEq/l (22.0-26.0); Oxygen Content ABG 21.1 %vol (16.0-22.0); Oxygen Saturation ABG 94.2 % (95.0-100.0); Oxyhemoglobin 92.1 % THb (90.0-100.0); PCO2 ABG 29.2 mmHg (35.0-45.0); PO2 ABG 65.6 mmHg (80.0-100.0); PO2 FiO2 Ratio Arterial Blood 0.66 %; Total Hemoglobin 16.3 g/dL (12.0-18.0); pH ABG 7.459 (7.350-7.450)
[2020-04-05 14:51] LABS: Device NON-REBREATHER MASK; Modified Allen's Test Pass; Site Drawn RIGHT RADIAL
[2020-04-05 15:42] LABS: Potassium 5.1 mmol/L (3.4-5.0)
[2020-04-05] MEDS: ACETAMINOPHEN 325 MG TABLET 650 MG PO (18:31)
[2020-04-05] MEDS: SIMVASTATIN 20 MG TABLET 40 MG PO (20:56)
[2020-04-06] VITALS (17 sets, daily range): BP systolic 104–125; BP diastolic 70–82; PULSE 55–96; RESP 18–26; TEMP 35.7–36.3; O2SAT 90–98
[2020-04-06] MEDS: ALBUTEROL SULFATE (*SP) AEROSOL 1 PUFF 2 PUFF INHALATION ×4 (02:36→20:04)
[2020-04-06 04:56] LABS: Hematocrit 44.4 % (42.0-52.0); Hemoglobin 15.2 g/dL (14.0-18.0); Mean Corpuscular HGB Conc 34.2 g/dl (32-36); Mean Corpuscular Hemoglobin 30.6 pg (26-34); Mean Corpuscular Volume 89.3 fl (80-100); Mean Platelet Volume 10.2 fl (7.4-10.4); Platelet Count Result 394 k/mm3 (150-375); Red Blood Count 4.97 M/mm3 (4.6-6.20); Red Cell Distribution Width 12.8 % (11.5-14.5)
[2020-04-06 05:12] LABS: Alanine Aminotransferase 27 U/L (4-50); Albumin Level 3.6 g/dL (3.5-5.1); Alkaline Phosphatase 54 U/L (38-126); Anion Gap 5 mmol/L (8-16); Aspartate Amino Transferase 46 U/L (17-59); Blood Urea Nitrogen 38 mg/dL (9-20); CRP 3.7 mg/dL (<1.0); Calcium 9.2 mg/dL (8.4-10.2); Carbon Dioxide 29 mmol/L (22-30); Chloride 100 mmol/L (98-107); Estimated CRCL calculation 58 ml/min; Estimated Glomerular Filt Rate > 60; Glucose 129 mg/dL (75-110); Lactate Dehydrogenase 1474 U/L (313-618); Magnesium 2.4 mg/dL (1.6-2.3); Phosphorus 3.8 mg/dL (2.5-4.5); Potassium 5.3 mmol/L (3.4-5.0); Sodium 134 mmol/L (137-145)
--- NOTE | 2020-04-06 08:00 | PCOTNOTE ---
Per RN, Patient is on 100% O2 at this time. Patient is not appropriate for therapy services at this time due to O2 sats.
--- NOTE | 2020-04-06 08:19 | PCPTNOTE ---
The patient treatment was not able to be completed on 04-06-2020 due to PAGAN reported to SUPERVISOR [employer]IC[employer] patient's R.N advised not to see patient due to change in medical status.. Will plan to continue treatment per plan of care.
[2020-04-06] MEDS: TAMSULOSIN HCL 0.4 MG CAPSULE PO (08:50)
[2020-04-06] MEDS: FENOFIBRATE 160 MG TABLET PO (08:50)
[2020-04-06] MEDS: DEXAMETHASONE SOD PHOS INJ 4 MG/ML VIAL 6 MG IV PUSH (08:50)
[2020-04-06] MEDS: PROPRANOLOL HCL 60 MG CAPSULE CR PO (08:50)
[2020-04-06] MEDS: ENOXAPARIN 40 MG/0.4 ML SYRINGE SUB-Q (08:50)
[2020-04-06] MEDS: TOLNAFTATE 1% POWDER 45 GM BTL 1 APPLIC TOPICAL ×2 (08:51→20:03)
--- NOTE | 2020-04-06 15:28 | PM.IMPN ---
Progress Note: A&P Assessment and Plan (1) Acute respiratory failure with hypoxemia: Code(s): J96.01 - Acute respiratory failure with hypoxia Status: Acute Assessment and Plan: Tolerating oxygen at 15 L with NRB to maintain sats. Wean O2 as tolerated. Continue Albuterol. Compliant with incentive spirometry. Increase activity as toerlated. 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 CXR clear on 03/27 but showing extensive bilateral airspace disease by CXR on admission (04/01). CTA chest negative for PE. No remdesivir due to past 10 day window. Dexamethasone initiated on 04/01. CRP and LDH about the same. Continue Dexamethasone. Wean O2 as tolerated (3) HTN (hypertension) with goal to be determined: Code(s): I10 - Essential (primary) hypertension Status: Chronic Assessment and Plan: Patient's blood pressure was reviewed on 04/06 Blood pressure remains well controlled. Will continue current medications with home propranolol. (4) BPH (benign prostatic hyperplasia): Code(s): N40.0 - Benign prostatic hyperplasia without lower urinary tract symptoms Status: Chronic Assessment and Plan: Patient has had TURP. Not on medications for BPH on admission. Dunham secured. Continue Flomax. (5) DVT prophylaxis: Code(s): Z29.9 - Encounter for prophylactic measures, unspecified Status: Acute Assessment and Plan: Lovenox (6) Hyperkalemia: Code(s): E87.5 - Hyperkalemia Status: Acute Assessment and Plan: potassium 5.3 today. TSH normal. Cortisol level low but not unexpected given the Dexa (should not effect the mineralocorticoid system unless has adrenal gland insufficiency). Not on medications to cause this. Lovenox? Continue low potassium diet. Subjective Date/time seen: 04/06/20 15:28 Interval history: Date of service 04/06 74yo male admitted 04/01 after about 10 days of symptoms of SOB, cough, chest tightness and fatigue. He tested positive for COVID-19 on 03/27/20. No nausea or vomiting. Decreased appetite today. Still with a cough. No chest. Off CPAP today. Exam Narrative: Exam Narrative: AF 97.1 104/77 94 18 95% HFNC/NRB Gen - NARD lying semirecumbent in bed Chest -diffuse expiratory rhonchi. Right greater than left inspiratory crackles. CV - irregular S1/S2; Tele showing sinus arrhythmia, PACs and PVCs Abd - Soft, ND, +BS, colostomy bag with brown stool in bag - Dunham secured draining clear yellow urine (placed 04/01) Ext - No pedal edema Psych - Nml mood and affect Skin - Warm and dry Objective Data Vital Signs Vital Signs: Vital Signs - 24 hr 04/05/20 16:00 04/05/20 18:00 04/05/20 20:00 Temperature 97.3 F L Pulse Rate 84 66 58 L Respiratory Rate 22 H Blood Pressure 123/64 Pulse Oximetry 93 90 04/05/20 20:20 04/05/20 22:00 04/05/20 23:54 Temperature 97.3 F L 97.3 F L Pulse Rate 70 57 L 65 Respiratory Rate 22 H 18 Blood Pressure 104/72 106/68 Pulse Oximetry 95 92 04/06/20 00:00 04/06/20 02:00 04/06/20 04:00 Temperature Pulse Rate 72 55 L 62 Respiratory Rate Blood Pressure Pulse Oximetry 96 96 04/06/20 06:00 04/06/20 08:00 04/06/20 08:50 Temperature 96.3 F L Pulse Rate 83 85 92 Respiratory Rate 22 H Blood Pressure 125/70 Pulse Oximetry 93 04/06/20 09:15 04/06/20 13:26 Temperature 97.1 F L Pulse Rate 89 94 Respiratory Rate 21 H 18 Blood Pressure 104/77 Pulse Oximetry 98 95 Intake/Output Intake/Output: Intake & Output 04/03/20 04/04/20 04/05/20 04/06/20 23:59 23:59 23:59 23:59 Intake Total 930 480 890 200 Output Total 1125 1600 1300 400 Balance -195 -1120 -410 -200 Meds/Results Medications: Active Me
[2020-04-06] MEDS: SIMVASTATIN 20 MG TABLET 40 MG PO (20:02)
[2020-04-06] MEDS: BENZONATATE 100 MG CAPSULE 200 MG PO (20:03)
[2020-04-07] VITALS (12 sets, daily range): BP systolic 115–133; BP diastolic 68–94; PULSE 62–105; RESP 20–32; TEMP 35.9–36.9; O2SAT 90–98; BMI 28.2
[2020-04-07 05:02] LABS: Anion Gap 5 mmol/L (8-16); Blood Urea Nitrogen 36 mg/dL (9-20); Carbon Dioxide 28 mmol/L (22-30); Chloride 101 mmol/L (98-107); Estimated CRCL calculation 53 ml/min; Estimated Glomerular Filt Rate > 60; Glucose 115 mg/dL (75-110); Potassium 4.9 mmol/L (3.4-5.0); Sodium 134 mmol/L (137-145)
[2020-04-07] MEDS: DEXAMETHASONE SOD PHOS INJ 4 MG/ML VIAL 6 MG IV PUSH (08:13)
[2020-04-07] MEDS: FENOFIBRATE 160 MG TABLET PO (08:13)
[2020-04-07] MEDS: PROPRANOLOL HCL 60 MG CAPSULE CR PO (08:13)
[2020-04-07] MEDS: ENOXAPARIN 40 MG/0.4 ML SYRINGE SUB-Q (08:13)
[2020-04-07] MEDS: TAMSULOSIN HCL 0.4 MG CAPSULE PO (08:14)
[2020-04-07] MEDS: TOLNAFTATE 1% POWDER 45 GM BTL 1 APPLIC TOPICAL ×2 (08:14→19:52)
[2020-04-07] MEDS: ALBUTEROL SULFATE (*SP) AEROSOL 1 PUFF 2 PUFF INHALATION ×2 (08:14→14:46)
[2020-04-07] MEDS: BENZONATATE 100 MG CAPSULE 200 MG PO (08:15)
--- NOTE | 2020-04-07 15:38 | PM.IMPN ---
Progress Note: A&P Assessment and Plan (1) Acute respiratory failure with hypoxemia: Code(s): J96.01 - Acute respiratory failure with hypoxia Status: Acute Assessment and Plan: Tolerating oxygen with NRB and HFNC to maintain sats. Wean O2 as tolerated. Continue Albuterol. Compliant with incentive spirometry. Increase activity as tolerated. Encouraged him to lay prone as he toelrates. 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 CXR clear on 03/27 but showing extensive bilateral airspace disease by CXR on admission (04/01). CTA chest negative for PE. No remdesivir due to past 10 day window. Dexamethasone initiated on 04/01. CRP and LDH about the same yesterday. Continue Dexamethasone. Wean O2 as tolerated (3) HTN (hypertension) with goal to be determined: Code(s): I10 - Essential (primary) hypertension Status: Chronic Assessment and Plan: Patient's blood pressure was reviewed on 04/07 Blood pressure remains well controlled. Will continue current medications with home propranolol. (4) BPH (benign prostatic hyperplasia): Code(s): N40.0 - Benign prostatic hyperplasia without lower urinary tract symptoms Status: Chronic Assessment and Plan: Patient has had TURP. Not on medications for BPH on admission. Dunham secured. Continue Flomax. (5) DVT prophylaxis: Code(s): Z29.9 - Encounter for prophylactic measures, unspecified Status: Acute Assessment and Plan: Lovenox (6) Hyperkalemia: Code(s): E87.5 - Hyperkalemia Status: Acute Assessment and Plan: potassium 4.9 today. TSH normal. Cortisol level low but not unexpected given the Dexa (should not effect the mineralocorticoid system unless has adrenal gland insufficiency). Not on medications to cause this. Continue low potassium diet. Subjective Date/time seen: 04/07/20 15:38 Interval history: Date of service 04/07 74yo male admitted 04/01 after about 10 days of symptoms of SOB, cough, chest tightness and fatigue. He tested positive for COVID-19 on 03/27/20. Wearing CPAP at night and still requiring NRB/HFNC during the day. He feels 'fair' today. No diarrhea. No CP or abd pain. Eating okay. Exam Narrative: Exam Narrative: AF 96.8 115/83 91 28 95 % HFNC/NRB Gen - NARD lying semirecumbent in bed Chest - Right greater than left bibasilar inspiratory crackles; otherwise distatn BS. CV - RRR S1/S2; Tele showing sinus arrhythmia at times Abd - Soft, ND, +BS, colostomy bag with brown stool in bag - Dunham secured draining clear yellow urine (placed 04/01) Ext - No pedal edema Psych - depressed mood Skin - Warm and dry Objective Data Vital Signs Vital Signs: Vital Signs - 24 hr 04/06/20 16:00 04/06/20 18:00 04/06/20 20:00 Temperature 97.2 F L 97.4 F L Pulse Rate 81 79 82 Respiratory Rate 24 H 26 H Blood Pressure 117/82 123/76 Pulse Oximetry 94 91 04/06/20 20:55 04/06/20 22:00 04/07/20 00:00 Temperature 96.9 F L Pulse Rate 85 62 66 Respiratory Rate 20 26 H Blood Pressure 132/69 Pulse Oximetry 96 98 04/07/20 02:00 04/07/20 04:00 04/07/20 06:00 Temperature 98.4 F Pulse Rate 73 62 68 Respiratory Rate 20 Blood Pressure 115/68 Pulse Oximetry 93 04/07/20 08:00 04/07/20 10:00 04/07/20 12:00 Temperature 96.7 F L 96.8 F L Pulse Rate 100 105 H 85 Respiratory Rate 32 H 28 H Blood Pressure 124/72 115/83 Pulse Oximetry 95 95 04/07/20 14:00 Temperature Pulse Rate 91 Respiratory Rate Blood Pressure Pulse Oximetry Intake/Output Intake/Output: Intake & Output 04/04/20 04/05/20 04/06/20 04/07/20 23:59 23:59 23:59 23:59 Intake Total 480 890 200 580 Output Total 1600 1300 900 650 Balance -1120
[2020-04-07] MEDS: SIMVASTATIN 20 MG TABLET 40 MG PO (19:53)
[2020-04-08] VITALS (12 sets, daily range): BP systolic 112–131; BP diastolic 68–84; PULSE 66–97; RESP 20–29; TEMP 36.1–36.6; O2SAT 89–97
[2020-04-08 05:27] LABS: Hematocrit 46.7 % (42.0-52.0); Hemoglobin 15.9 g/dL (14.0-18.0); Mean Corpuscular Hemoglobin 30.4 pg (26-34); Mean Corpuscular Volume 89.3 fl (80-100); Mean Platelet Volume 10.2 fl (7.4-10.4); Platelet Count Result 404 k/mm3 (150-375); Red Blood Count 5.23 M/mm3 (4.6-6.20); Red Cell Distribution Width 12.7 % (11.5-14.5); White Blood Count 15.5 K/mm3 (4.5-10.0)
[2020-04-08 05:44] LABS: Anion Gap 1 mmol/L (8-16); Blood Urea Nitrogen 37 mg/dL (9-20); CRP 6.9 mg/dL (<1.0); Calcium 9.4 mg/dL (8.4-10.2); Carbon Dioxide 35 mmol/L (22-30); Chloride 99 mmol/L (98-107); Estimated CRCL calculation 49 ml/min; Estimated Glomerular Filt Rate 59; Glucose 114 mg/dL (75-110); Lactate Dehydrogenase 1502 U/L (313-618); Sodium 135 mmol/L (137-145)
[2020-04-08] MEDS: BENZONATATE 100 MG CAPSULE 200 MG PO (08:42)
[2020-04-08] MEDS: DEXAMETHASONE SOD PHOS INJ 4 MG/ML VIAL 6 MG IV PUSH (08:42)
[2020-04-08] MEDS: FENOFIBRATE 160 MG TABLET PO (08:42)
[2020-04-08] MEDS: TAMSULOSIN HCL 0.4 MG CAPSULE PO (08:42)
[2020-04-08] MEDS: PROPRANOLOL HCL 60 MG CAPSULE CR PO (08:42)
[2020-04-08] MEDS: ENOXAPARIN 40 MG/0.4 ML SYRINGE SUB-Q (08:42)
[2020-04-08] MEDS: TOLNAFTATE 1% POWDER 45 GM BTL 1 APPLIC TOPICAL ×2 (08:58→19:50)
[2020-04-08] MEDS: ALBUTEROL SULFATE (*SP) AEROSOL 1 PUFF 2 PUFF INHALATION ×3 (08:58→21:42)
--- NOTE | 2020-04-08 14:09 | PM.IMPN ---
Progress Note: A&P Assessment and Plan (1) Acute respiratory failure with hypoxemia: Code(s): J96.01 - Acute respiratory failure with hypoxia Status: Acute Assessment and Plan: Tolerating oxygen with NRB and HFNC to maintain sats. Wean O2 as tolerated. Continue Albuterol. Compliant with incentive spirometry. Increase activity as tolerated. Encouraged him to lay prone as he toelrates. 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 CXR clear on 03/27 but showing extensive bilateral airspace disease by CXR on admission (04/01). CTA chest negative for PE. No remdesivir due to past 10 day window. Dexamethasone initiated on 04/01. CRP worse but LDH about the same. Continue Dexamethasone. Wean O2 as tolerated (3) HTN (hypertension) with goal to be determined: Code(s): I10 - Essential (primary) hypertension Status: Chronic Assessment and Plan: Patient's blood pressure was reviewed on 04/08 Blood pressure remains well controlled. Will continue current medications with home propranolol. (4) BPH (benign prostatic hyperplasia): Code(s): N40.0 - Benign prostatic hyperplasia without lower urinary tract symptoms Status: Chronic Assessment and Plan: Patient has had TURP. Not on medications for BPH on admission. Dunham secured. Continue Flomax. Remove Dunham when more ambulatory. (5) DVT prophylaxis: Code(s): Z29.9 - Encounter for prophylactic measures, unspecified Status: Acute Assessment and Plan: Lovenox (6) Hyperkalemia: Code(s): E87.5 - Hyperkalemia Status: Acute Assessment and Plan: Potassium 5.0 today. TSH normal. Cortisol level low but not unexpected given the Dexa (should not effect the mineralocorticoid system unless has adrenal gland insufficiency). Not on medications to cause this. Continue low potassium diet. Subjective Date/time seen: 04/08/20 14:09 Interval history: Date of service 04/08 74yo male admitted 04/01 after about 10 days of symptoms of SOB, cough, chest tightness and fatigue. He tested positive for COVID-19 on 03/27/20. Still with nonproductive cough. No CP or abd pain. Decreased appetite. Exam Narrative: Exam Narrative: AF 97.3 112/81 90 28 90% HFNC/NRB Gen - NARD lying semirecumbent in bed Chest - Right>left bibasilar inspiratory crackles CV - RRR S1/S2; Tele showing PACs Abd - Soft, ND, +BS, colostomy bag with brown stool in bag - Dunham secured draining clear yellow urine (placed 04/01) Ext - No pedal edema Psych - depressed mood Skin - Warm and dry Objective Data Vital Signs Vital Signs: Vital Signs - 24 hr 04/07/20 16:00 04/07/20 18:00 04/07/20 20:00 Temperature 97.6 F 97 F L Pulse Rate 94 84 95 Respiratory Rate 20 26 H Blood Pressure 133/94 H 131/84 Pulse Oximetry 94 95 04/07/20 23:45 04/08/20 00:00 04/08/20 00:31 Temperature 96.9 F L Pulse Rate 94 89 Respiratory Rate 20 29 H Blood Pressure 117/68 Pulse Oximetry 90 97 95 04/08/20 04:00 04/08/20 08:00 04/08/20 08:42 Temperature 97.2 F L 97 F L Pulse Rate 92 66 96 Respiratory Rate 20 20 Blood Pressure 131/84 116/76 Pulse Oximetry 90 89 L 04/08/20 10:00 04/08/20 12:00 04/08/20 14:00 Temperature 97.3 F L Pulse Rate 86 86 90 Respiratory Rate 28 H Blood Pressure 112/81 Pulse Oximetry 90 Intake/Output Intake/Output: Intake & Output 04/05/20 04/06/20 04/07/20 04/08/20 23:59 23:59 23:59 23:59 Intake Total 890 200 790 660 Output Total 6809 511 9582 450 Balance -410 700 -360 210 Meds/Results Medications: Active Medications Generic Name Dose Route Start Last Admin Trade Name Freq PRN Reason Stop Dose Admin Acetaminophen 650 mg 04/01/20 13:14 03/18
[2020-04-08] MEDS: SIMVASTATIN 20 MG TABLET 40 MG PO (19:51)
[2020-04-09] VITALS (14 sets, daily range): BP systolic 103–137; BP diastolic 78–96; PULSE 60–96; RESP 20–32; TEMP 36.1–36.6; O2SAT 87–94
[2020-04-09 05:40] LABS: Anion Gap 7 mmol/L (8-16); Blood Urea Nitrogen 38 mg/dL (9-20); Calcium 9.2 mg/dL (8.4-10.2); Carbon Dioxide 28 mmol/L (22-30); Chloride 99 mmol/L (98-107); Estimated CRCL calculation 58 ml/min; Estimated Glomerular Filt Rate > 60; Glucose 105 mg/dL (75-110); Potassium 4.8 mmol/L (3.4-5.0); Sodium 134 mmol/L (137-145)
[2020-04-09] MEDS: BENZONATATE 100 MG CAPSULE 200 MG PO (11:19)
[2020-04-09] MEDS: FENOFIBRATE 160 MG TABLET PO (11:19)
[2020-04-09] MEDS: TAMSULOSIN HCL 0.4 MG CAPSULE PO (11:19)
[2020-04-09] MEDS: PROPRANOLOL HCL 60 MG CAPSULE CR PO (11:19)
[2020-04-09] MEDS: ENOXAPARIN 40 MG/0.4 ML SYRINGE SUB-Q (11:19)
[2020-04-09] MEDS: DEXAMETHASONE SOD PHOS INJ 4 MG/ML VIAL 6 MG IV PUSH (11:20)
[2020-04-09] MEDS: TOLNAFTATE 1% POWDER 45 GM BTL 1 APPLIC TOPICAL ×2 (11:25→20:07)
[2020-04-09] MEDS: ALBUTEROL SULFATE (*SP) AEROSOL 1 PUFF 2 PUFF INHALATION ×2 (16:12→20:05)
--- NOTE | 2020-04-09 16:55 | PM.IMPN ---
Progress Note: A&P Assessment and Plan (1) Acute respiratory failure with hypoxemia: Code(s): J96.01 - Acute respiratory failure with hypoxia Status: Acute Assessment and Plan: Requiring NRB and HFNC to maintain sats. Wean O2 as tolerated. Continue Albuterol. Compliant with incentive spirometry. Increase activity as tolerated. Encouraged him to lay prone as he tolerates. 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 CXR clear on 03/27 but showing extensive bilateral airspace disease by CXR on admission (04/01). CTA chest negative for PE. No remdesivir due to past 10 day window. Dexamethasone initiated on 04/01. CXR today showing diffuse lung disease with slight interval improvement. Continue Dexamethasone. Wean O2 as tolerated. lasix once. Check Echo. Pulmonary consult. (3) HTN (hypertension) with goal to be determined: Code(s): I10 - Essential (primary) hypertension Status: Chronic Assessment and Plan: Patient's blood pressure was reviewed on 04/09 Blood pressure remains well controlled. Will continue current medications with home propranolol. (4) BPH (benign prostatic hyperplasia): Code(s): N40.0 - Benign prostatic hyperplasia without lower urinary tract symptoms Status: Chronic Assessment and Plan: Patient has had TURP. Not on medications for BPH on admission. Dunham secured. Continue Flomax. Remove Dunham when more ambulatory. (5) DVT prophylaxis: Code(s): Z29.9 - Encounter for prophylactic measures, unspecified Status: Acute Assessment and Plan: Lovenox (6) Hyperkalemia: Code(s): E87.5 - Hyperkalemia Status: Acute Assessment and Plan: Potassium 4.9 today. TSH normal. Cortisol level low but not unexpected given the Dexa (should not effect the mineralocorticoid system unless has adrenal gland insufficiency). Not on medications to cause this. Continue low potassium diet. Subjective Date/time seen: 04/09/20 16:55 Interval history: Date of service 04/09 74yo male admitted 04/01 after about 10 days of symptoms of SOB, cough, chest tightness and fatigue. He tested positive for COVID-19 on 03/27/20. Still with nonproductive cough. No change in his feeling SOB. No CP. No n/v/d. Eating okay. Did wear the mask at night. Exam Narrative: Exam Narrative: AF 97.0 131/81 76 32 92% HFNC/NRB Gen - tachypneic at rest lying semi-recumbent in bed Chest - Bibasilar inspiratory crackles o/w distant BS CV - RRR S1/S2; Tele showing PACs Abd - Soft, NT/ND, +BS, colostomy bag with brown stool in bag - Dunham secured draining clear yellow urine (placed 04/01) Ext - No pedal edema Psych - normal mood Skin - Warm and dry Objective Data Vital Signs Vital Signs: Vital Signs - 24 hr 04/08/20 18:00 04/08/20 20:00 04/08/20 21:42 Temperature 97.4 F L Pulse Rate 83 77 69 Respiratory Rate 22 H 22 H Blood Pressure 114/80 Pulse Oximetry 90 89 L 04/09/20 00:00 04/09/20 04:00 04/09/20 08:00 Temperature 97.2 F L 97.2 F L 96.9 F L Pulse Rate 62 89 86 Respiratory Rate 28 H 27 H 24 H Blood Pressure 137/80 133/96 H 115/78 Pulse Oximetry 93 94 88 L 04/09/20 10:00 04/09/20 10:07 04/09/20 11:19 Temperature Pulse Rate 94 94 Respiratory Rate Blood Pressure Pulse Oximetry 91 04/09/20 12:00 04/09/20 13:35 04/09/20 15:19 Temperature 97.5 F L Pulse Rate 93 96 Respiratory Rate 30 H Blood Pressure 122/84 Pulse Oximetry 88 L 94 04/09/20 16:00 Temperature 97 F L Pulse Rate 76 Respiratory Rate 32 H Blood Pressure 131/81 Pulse Oximetry 92 Intake/Output Intake/Output: Intake & Output 04/06/20 04/07/20 04/08/20 04/09/20 23:59 23:59 23:59 23:59 Intake Total 200
[2020-04-09] MEDS: FUROSEMIDE INJ 40 MG/4 ML VIAL 20 MG IV PUSH (17:18)
[2020-04-09] MEDS: SIMVASTATIN 20 MG TABLET 40 MG PO (20:06)
[2020-04-09 21:05] LABS: NT Pro B Type Natriuretic Pept 1290 PG/ML (5-100)
[2020-04-10] VITALS (14 sets, daily range): BP systolic 127–153; BP diastolic 82–87; PULSE 70–110; RESP 20–38; TEMP 36.2–36.6; O2SAT 85–94
--- NOTE | 2020-04-10 | ECHO_ITS ---
Patient Info Name: Shai Montoya Age: 74 years : 1945 Gender: Male Ht: 70 in Wt: 201 lbs BSA: 2.14 m2 HR: 94 bpm BP: 153 / 82 mmHg Heart Rhythm: Sinus Rhythm Technical Quality: Good Exam Date: 04/10/2020 11:50 AM Exam Location: [facility] Patient Status: Inpatient Admit Date: 04/01/2020 Staff Ordering Physician: Braden Solomon MD Record Press Operator: Neel Trejo, MCKENZIE, RT Attending Provider: Braden Solomon MD Exam Type: CA echo doppler color flow Study Info Indications R06.02 - Shortness of breath Complete two-dimensional, color flow and Doppler transthoracic echocardiogram is performed. Summary 1. Complete two-dimensional, color flow and Doppler transthoracic echocardiogram is performed. 2. Technically difficult study with limited image quality. 3. Left ventricular hypertrophy with preserved systolic contractility. 4. Poorly visualized aortic valve which appears to be significantly stenotic by Doppler. Area 0.8 cm2. Left Ventricle Left ventricular chamber dimension is normal. Left ventricular systolic function is normal, estimated at 60-65%. There is mildly increased left ventricular wall thickness. The left ventricular diastolic function is grade I diastolic dysfunction. Right Ventricle Right ventricular chamber dimension is mildly enlarged. Left Atria Left atrial chamber dimension is mildly enlarged. Right Atria Right atrial chamber dimension is normal. Aortic Valve The aortic valve is not well visualized. There is severe aortic valve stenosis with a peak velocity of 289 cm/s, mean gradient of 19 mmHg, and aortic valve area of 0.8 cm2. Pulmonic Valve The pulmonic valve is not well visualized. Mitral Valve The mitral valve has normal leaflets. Tricuspid Valve The tricuspid valve leaflets are not well visualized. Pericardium/Pleural The pericardium appears normal. Aorta The aortic root size at the sinus of Valsalva is normal. Left Ventricular Outflow Tract Name Value Normal LVOT 2D LVOT Diameter 2.1 cm LVOT Doppler LVOT Peak Gradient 1 mmHg LVOT Mean Gradient 1 mmHg LVOT VTI 9 cm LVOT VTI/AV VTI Ratio 0.2 LVOT Stroke Volume 33 ml LVOT CO 3.4 l/min LVOT CI 1.6 l/min/m2 Mitral Valve Name Value Normal MV Doppler MV Decel [place] 1,164 cm/s2 MV PHT 22 ms MV Area (PHT) 9.9 cm2 4.0-5.0 MV Diastolic Function MV E Peak Velocity 89 cm/s MV A Peak Velocity 67 cm/s MV E/A
[2020-04-10] MEDS: ALBUTEROL SULFATE (*SP) AEROSOL 1 PUFF 2 PUFF INHALATION ×2 (00:40→08:43)
[2020-04-10 04:52] LABS: Hematocrit 48.2 % (42.0-52.0); Hemoglobin 16.6 g/dL (14.0-18.0); Mean Corpuscular HGB Conc 34.4 g/dl (32-36); Mean Corpuscular Hemoglobin 30.7 pg (26-34); Mean Corpuscular Volume 89.1 fl (80-100); Mean Platelet Volume 10.5 fl (7.4-10.4); Platelet Count Result 358 k/mm3 (150-375); Red Blood Count 5.41 M/mm3 (4.6-6.20); Red Cell Distribution Width 12.8 % (11.5-14.5); White Blood Count 15.8 K/mm3 (4.5-10.0)
[2020-04-10 05:06] LABS: Albumin Level 3.3 g/dL (3.5-5.1); Anion Gap 7 mmol/L (8-16); Blood Urea Nitrogen 44 mg/dL (9-20); Calcium 9.2 mg/dL (8.4-10.2); Carbon Dioxide 30 mmol/L (22-30); Chloride 96 mmol/L (98-107); Estimated CRCL calculation 45 ml/min; Estimated Glomerular Filt Rate 54; Glucose 125 mg/dL (75-110); Phosphorus 5.2 mg/dL (2.5-4.5); Potassium 4.9 mmol/L (3.4-5.0); Sodium 133 mmol/L (137-145)
[2020-04-10] MEDS: PROPRANOLOL HCL 60 MG CAPSULE CR PO (08:27)
[2020-04-10] MEDS: DEXAMETHASONE SOD PHOS INJ 4 MG/ML VIAL 6 MG IV PUSH (08:27)
[2020-04-10] MEDS: TAMSULOSIN HCL 0.4 MG CAPSULE PO (08:27)
[2020-04-10] MEDS: FENOFIBRATE 160 MG TABLET PO (08:27)
[2020-04-10] MEDS: ENOXAPARIN 40 MG/0.4 ML SYRINGE SUB-Q (08:27)
[2020-04-10] MEDS: BUDESONIDE RESPULE NEB 0.5 MG/2 ML AMP INHALATION ×2 (08:41)
--- NOTE | 2020-04-10 11:10 | PM.CNPUL ---
Assessment and Plan Assessment and plan (1) Pneumonia due to 2019-nCoV: Code(s): U07.1 - COVID-19; J12.82 - Pneumonia due to coronavirus disease 2019 Status: Acute (2) Acute respiratory failure with hypoxemia: Code(s): J96.01 - Acute respiratory failure with hypoxia Status: Acute Assessment and Plan: Unclear why whether the persistent infiltrates are due to inflammatory effects from COVID-19 or interstitial pulmonary edema or pulmonary fibrosis. I did not suspect a superimposed bacterial pneumonia at this point and hence antibiotics are not warranted. I would recommend increasing his diuretic doses and monitoring his oxygenation for improvement. I would also recommend continuing CPAP 10 cm H2O as needed during the day this can be alternated with high-flow oxygen to keep his O2 saturations at 92-96%. I have also added Pulmicort 1.0 mg nebulized q.12 hours to his regimen. Follow up on his echocardiogram results. History of Present Illness History of Present Illness Consult date: 04/10/20 Chief complaint: COVID 19, Hypoxia Narrative: This is a 74-year-old male with COVID-19 pneumonia and hypoxemic respiratory failure. I was consulted because the patient is not improving on standard therapy. He was admitted a couple of weeks ago and by that time he was out of the window for REM does severe treatment. Dexamethasone was started on 04/01 19 and hands today is day 9 I believe. He continues to do poorly on high-flow oxygen. A chest x-ray showing diffuse bilateral interstitial opacities. It is difficult to know whether these interstitial opacities are due to infection, inflammation or fluid from pulmonary edema. He has been in negative balance for the last few days. Last night he was started on CPAP with a pressure of 10 cm H2O and today he feels much better on that. He is still requiring 100% FiO2 but his breathing does not appear to be labored on the CPAP. He is awake and alert but is difficult to get history while he is on CPAP. From the chart it appears he has a history of BPH, hypertension, hyperlipidemia, rectal cancer. He denies any history of congestive heart failure, CAD, COPD, or smoking. His BNP was 1780 of few days ago and it was rechecked last night and it was 1290 which is still quite elevated despite a creatinine of 1.3. An echo has been ordered and is currently pending. Review of Systems Review of Systems: All systems reviewed & are unremarkable except as noted in HPI and below PMFSH Past Medical History Medical History (Updated 04/04/20 @ 10:30 by Braden Solomon MD) BPH (benign prostatic hyperplasia) HTN (hypertension) with goal to be determined Hyperlipidemia Rectal cancer approximately 10 years ago with a colostomy and radiation and chemotherapy. Surgical History Surgical History (Updated 04/01/20 @ 15:19 by Caitlin Jeter NP) H/O hernia repair colostomy prolapse History of colon surgery colostomy History of removal of Port-a-Cath S/P TURP Family History Family History Mother Carcinoma of colon Family history of congestive heart failure Father Lung cancer Social History Social History (Updated 04/01/20 @ 15:21 by Caitlin Jeter NP) Social History: the patient has never he is single and he does not have any children. He is retired from a [employer]. Lifelong nonsmoker. Does not use any alcohol or illicit drugs. His brother is a durable power insurance attorney for healthcare. He has with his brother. Patient desires to be a full code. Smoking status: Never smoker Alcohol intake: never Substance use: never Gender identity (if verbalized by the patient): Male Spiritual care concerns: No Meds Home Medications and Allergies Home Medications Medication Instructions Recorded Confirmed Type benzonatate 200 mg PO TID PRN 04/01/20 04/01/20 History fenofibrate 160 mg P
[2020-04-10] MEDS: TOLNAFTATE 1% POWDER 45 GM BTL 1 APPLIC TOPICAL (11:39)
[2020-04-10] MEDS: FUROSEMIDE INJ 40 MG/4 ML VIAL 20 MG IV PUSH (12:39)
--- NOTE | 2020-04-10 13:00 | PM.IMPN ---
Progress Note: A&P Assessment and Plan (1) Acute respiratory failure with hypoxemia: Code(s): J96.01 - Acute respiratory failure with hypoxia Status: Acute Assessment and Plan: Was requiring NRB and HFNC to maintain sats but has worsened now to being CPAP dependent. Discussed with office equipment mechanic and now luc is being moved to the ICU for intubation. He is a full code. Family notified. Continue Albuterol. 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 CXR clear on 03/27 but showing extensive bilateral airspace disease by CXR on admission (04/01). CTA chest negative for PE. No remdesivir due to past 10 day window. Dexamethasone initiated on 04/01. CXR 04/09 showing diffuse lung disease with slight interval improvement. Lasix IV once given with good UOP but clinical condition did not improve. Continue Dexamethasone. Follow up on Echo results. Appreciate Pulmonary input. (3) HTN (hypertension) with goal to be determined: Code(s): I10 - Essential (primary) hypertension Status: Chronic Assessment and Plan: Patient's blood pressure was reviewed on 04/10 Blood pressure remains well controlled. Will continue current medications with home propranolol. (4) BPH (benign prostatic hyperplasia): Code(s): N40.0 - Benign prostatic hyperplasia without lower urinary tract symptoms Status: Chronic Assessment and Plan: Patient has had TURP. Not on medications for BPH on admission. Dunham secured. Continue Flomax. Remove Dunham when more ambulatory. (5) DVT prophylaxis: Code(s): Z29.9 - Encounter for prophylactic measures, unspecified Status: Acute Assessment and Plan: Lovenox (6) Hyperkalemia: Code(s): E87.5 - Hyperkalemia Status: Acute Assessment and Plan: Potassium 4.9 again today. TSH normal. Cortisol level low but not unexpected given the Dexa (should not effect the mineralocorticoid system unless has adrenal gland insufficiency). Not on medications to cause this. Follow Subjective Date/time seen: 04/10/20 13:00 Interval history: Date of service 04/10 74yo male admitted 1/16 after about 10 days of symptoms of SOB, cough, chest tightness and fatigue. He tested positive for COVID-19 on 03/27/20. Good UOP with the Lasix from yesterday. He toelrated the CPAP last night but could not get off the CPAP this morning. Worsening SOB. No CP (but RN later states patient now with chest pain). Exam Narrative: Exam Narrative: AF 97.1 128/87 93 38 91% CPAP Gen - tachypneic at rest lying semi-recumbent in bed Chest - Inspiratory crackles in the flanks CV - RRR S1/S2; Tele showing tachycardia Abd - Soft, NT/ND, +BS, colostomy bag with scant stool in bag - Dunham secured draining clear yellow urine (placed 04/01) Ext - No pedal edema Psych - depressed Skin - Warm and dry Objective Data Vital Signs Vital Signs: Vital Signs - 24 hr 04/09/20 13:35 04/09/20 15:19 04/09/20 16:00 Temperature 97 F L Pulse Rate 96 75 Respiratory Rate 32 H Blood Pressure 131/81 Pulse Oximetry 94 92 04/09/20 17:33 04/09/20 20:00 04/09/20 22:00 Temperature 97.8 F Pulse Rate 75 78 80 Respiratory Rate 20 29 H Blood Pressure 103/80 Pulse Oximetry 90 92 04/09/20 23:53 04/10/20 00:00 04/10/20 01:15 Temperature 97.8 F Pulse Rate 72 71 92 Respiratory Rate 20 31 H Blood Pressure 120/78 Pulse Oximetry 93 90 91 04/10/20 02:00 04/10/20 03:01 04/10/20 03:59 Temperature 97.8 F Pulse Rate 70 82 110 H Respiratory Rate 28 H 20 Blood Pressure 153/82 H Pulse Oximetry 91 94 04/10/20 04:00 04/10/20 06:00 04/10/20 08:00 Temperature 97.8 F Pulse Rate 75 91 98 Respiratory Ra
--- NOTE | 2020-04-10 13:52 | PC.NURSE ---
Several attempts made to reach brother Roly and Reed. Successfully reached Reed and updated on condition - Reed requests us to speak to brother Roly. Informed unable to reach Roly - Reed is going to have Roly call.
--- NOTE | 2020-04-10 13:56 | PC.NURSE ---
Spoke with brother Roly, updated on status.
--- NOTE | 2020-04-10 13:59 | PCPTNOTE ---
The patient treatment was not able to be completed on 04/10/20 due to change in medical status. PT will follow up with Physician for further orders. She Rae, SALES SUPPORT ASSISTANT
--- NOTE | 2020-04-10 14:01 | PC.NURSE ---
Notified siblings Roly and Reed of .
--- NOTE | 2020-04-10 14:17 | WPDCNINT ---
Assessment and Plan Assessment and plan (1) Acute respiratory failure with hypoxemia: Code(s): J96.01 - Acute respiratory failure with hypoxia Status: Acute Assessment and Plan: Acute hypoxic respiratory failure likely related to COVID-19 19 pneumonia, pulmonary edema, interstitial fibrosis. -appreciate pulmonology evaluation and recommendation -patient was successfully intubated in the ICU and post intubation patient had a V-tach/VFib arrest -patient at 2:00 p.m. (2) Pneumonia due to 2019-nCoV: Code(s): U07.1 - COVID-19; J12.82 - Pneumonia due to coronavirus disease 2018 Status: Acute Assessment and Plan: COVID-19 pneumonia, SARS-CoV-2 PCR positive on 03/27/2020 -continue droplet, airborne and contact isolation/precautions -patient did complete his dexamethasone, did not meet the window for Remdesivir treatment -inflammatory markers were elevated (3) DVT prophylaxis: Code(s): Z29.9 - Encounter for prophylactic measures, unspecified Status: Acute Assessment and Plan: Patient was getting Lovenox 40 mg subcu daily (4) HTN (hypertension) with goal to be determined: Code(s): I10 - Essential (primary) hypertension Status: Chronic Assessment and Plan: Blood patient was stable in the intermediate Unit Additional Plan Code status: Full code Critical care time spent: 55 minutes Family was notified during the code/cardiac arrest and after the code was called off. Due to a high probability of clinically significant, life threatening deterioration, the patient required my highest level of preparedness to intervene emergently and I personally spent this critical care time directly and personally managing the patient. This critical care time included obtaining a history; examining the patient; pulse oximetry; ordering and review of studies; arranging urgent treatment with development of a management plan; evaluation of patient's response to treatment; frequent reassessment; and discussions with other providers. It was exclusive of separately billable procedures and treating other patients and teaching time. Please see Assessment and Plan section and the rest of the note for further information on patient assessment and treatment Heat Treat Operator Consult Note Consult date: 04/10/20 Time Seen: 12:56 Reason for consult: Acute hypoxic respiratory failure, positive COVID-19 19, interstitial lung disease HPI: Shai Montoya is a 74 year old male with history of essential hypertension, hyperlipidemia, history of rectal cancer status post colostomy and radiation along with chemotherapy, BPH, presented to the ED on 04/01/2020 with complains of shortness of breath for 1 week prior to admission,, fatigue. He was tested positive for COVID-19 on 03/27/2020. Patient was on 15 L nasal cannula initially and progressed to 100% FiO2 on BiPAP. Patient was started on dexamethasone on 04/01/2020. He was out of the window for Remdesivir treatment. I was called this afternoon as patient was desaturating, tachypneic and cyanotic. Patient on BiPAP, 100% FiO2 with adequate tidal volumes, O2 sats were in the low 80s. Has decided to intubate the patient, patient was brought to the ICU and intubated, after intubation patient went to cardiac arrest, CPR and ACLS protocol was instituted. Initial rhythm was V-tach, received multiple doses of epinephrine, bicarb, D50, calcium, magnesium. Patient was also defibrillated secondary to VFib. Code was called of after 25 minutes. Patient had pain VFib, asystole and V-tach rhythms the course of the code. Review of Systems Review of Systems: ROS unobtainable: Yes unobtainable due to endotracheal tube PMFSH Past Medical History Medical History (Updated 04/04/20 @ 10:30 by Braden Solomon MD) BPH (benign prostatic hyperplasia) HTN (hypertension) with goal to be determined Hyperlipidemia Rectal cancer approximately 10 years ago with a colostomy and
--- NOTE | 2020-04-10 14:31 | WPDPROCEDUR ---
Procedures Intubation Intubation Date: 04/10/20 Intubation Time: 13:22 A pre-procedural Time-Out was completed immediately before starting the procedure and confirmed: Patient Identification, Site, Procedure, Patient Position and the Availability of Requisite Equipment: Yes Sedative: etomidate Paralytic: rocuronium Laryngoscope: fiber optic video scope Assist device used: fiber optic device ET tube size: 8 Tube secured depth (cm): 23 Tube secured location: lips Tube placement confirmation: visualized tube passing through cords, equal breath sounds bilaterally, no breath sounds over epigastrium and confirmation by capnometry Patient tolerated procedure: well and no complications Intubation complications: none
--- NOTE | 2020-04-10 14:31 | PDCODEBLUE ---
Code Blue Note Code Blue Note Time Arrived at Code Blue: 1334 Initial Rhythm on Arrival: Ventricular tachycardia/fibrillation Airway Management: Pt being bagged on arrival Chest Compressions: In process on arrival to bedside Result of Code Blue: Pt Cardiac Rhythm Post Code: Asystole Code Blue Summary: I was in the room when patient went into V-tach/VFib rhythm. Patient went to this rhythm after intubation. CPR and ACLS protocol was initiated. Referred to code sheet for further information. ACLS protocol was continued for 25 minutes without meaningful recovery. at 2:00 p.m. on 04/10/2020 -family was notified
--- NOTE | 2020-04-10 14:42 | PC.NURSE ---
Patient was found tachypneic with labored, shallow breathing at 40 breaths per minute. His oxygen saturation was in the mid 80's at that time. Patient noted he was having some chest pain that had started with the labored breathing. Notified Dr. Solomon of the increased shortness of breath, and he went to talk to Dr. Corrigan. Respiratory therapy was notified, and they switched the patient over from CPAP to BiPAP mode while we waited for Dr. Corrigan to arrive. Dr. Corrigan assessed the patient and decided to move the patient to ICU and intubate the patient. Patient was transported to ICU at 1320.
--- NOTE | 2020-04-10 18:40 | PM.DDS ---
Discharge Sum: Prov Provider Primary care physician: Paco Olson MD Admitting provider: Landry Rosen MD Consults: 04/09/20 17:08 Consult to Physician Routine Comment: SPOKE WITH DR. MONTESINOS Consulting Provider: Carlos Montesinos straddle carrier operator/MD group to consult: pulmonary Reason for consultation: COVID, no improvement Has provider been notified: Yes Pronouncing clinician: Braden Solomon Discharge Sum: Diag PCOD V-tach/VFib arrest Contributing Factors (1) Acute respiratory failure with hypoxemia: (2) Pneumonia due to 2019-nCoV: (3) HTN (hypertension) with goal to be determined: (4) BPH (benign prostatic hyperplasia): (5) DVT prophylaxis: (6) Hyperkalemia: Discharge Sum: Summary Date and Time Date of admission: 04/01/20 13:14 Date of : 04/10/20 Time of : 13:59 Summary Details: Patient tested positive 03/27 for COVID but had been having 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 CXR clear on 03/27 but showing extensive bilateral airspace disease by CXR on admission (04/01). CTA chest negative for PE. No remdesivir due to past 10 day window. Dexamethasone initiated on 04/01. CXR 04/09 showing diffuse lung disease with slight interval improvement. Lasix IV once given with good UOP but clinical condition did not improve. Was requiring NRB and HFNC to maintain sats but worsened now to being CPAP dependent. Discussed with diesel technician mechanic and patient moved to the ICU for intubation. Family notified. While patient was being intubated, he developed V-tach/VFib rhythm and a code blue was called. CPR and ACLS protocol was started. ACLS protocol was continue for 25 minutes without meaningful recovery. Patient and family was notified. Additional Data Family: contacted Attending/PCP notified?: Yes Attending physician: Stu Solomon MD Was code activated?: Yes Hospice patient?: No
[2020-04-11 22:59] LABS: Adrenocorticotropic Hormone <5 pg/mL (6-50)
== END 2020-04-10 13:58 | disposition expired | DRG 177 ==
LOC: ANHED 13:14 → ANHIMU 15:55 → ANHICU 04-13 13:25 → ANHIMU 04-13 13:25
PROVIDERS: Internal Medicine; Internal Medicine Critical Care Medicine; Nurse Practitioner; Admitting Provider Internal Medicine; Emergency Provider Emergency Medicine; PCP Family Medicine Adolescent Medicine; Visit Provider Internal Medicine
DX: U07.1 COVID-19 (principal); J12.82 Pneumonia due to coronavirus disease 2019; J96.01 Acute respiratory failure with hypoxia; I47.2 Ventricular tachycardia; I49.01 Ventricular fibrillation; I46.2 Cardiac arrest due to underlying cardiac condition; I10 Essential (primary) hypertension; E78.5 Hyperlipidemia, unspecified; E87.5 Hyperkalemia; N40.0 Benign prostatic hyperplasia without lower urinary tract symptoms; Z85.048 Personal history of other malignant neoplasm of rectum, rectosigmoid junction, and anus; Z92.21 Personal history of antineoplastic chemotherapy; Z92.3 Personal history of irradiation; Z93.3 Colostomy status
CPT/HCPCS: 36415; 36600; 71045; 71275; 80048; 80053; 80069; 82024; 82533; 82728; 82805; 83615; 83735; 83880; 84100; 84132; 84443; 84484; 85025; 85027; 85380; 86140; 92950; 93005; 93306; 94003; 94640; 96374; 96375; 97110; 97116; 97161; 97165; 97530; 99285; A9270; C1751; J0171; J1100; J1650; J1885; J1940; J3475; Q9967